=== PATIENT | male | born 1975 | race Caucasian/White ===

== ENCOUNTER 2019-04-30 10:05 | Inpatient (IN) ==
[2019-04-30 10:40] LABS: BASO# 0.03 X1000 (0.0-0.2); BASO% 0.1 % (0.0-0.8); EOS# 0.04 X1000 (0.0-0.7); EOS% 0.2 % (0.0-10.0); HEMATOCRIT 47.8 % (42.0-52.0); HEMOGLOBIN 16.1 g/dL (14.0-18.0); IMM GRAN# 0.06 X1000 (0.0-0.04); IMM GRAN% 0.3 % (0.0-0.5); LYMPH% 8.2 % (20.5-51.1); MCHC 33.7 g/dL (33-37); MCV 91.9 FL (81-99); MONO# 1.21 X1000 (0.11-0.59); MONO% 5.5 % (1.7-9.3); MPV 9.7 FL (7.4-10.4); NEUT# 18.83 X1000 (1.4-6.5); NEUT% 85.7 % (42.2-75.2); PLT 226 X1000 (130-400); RDW 12.4 % (11.5-14.5); WBC 21.97 X1000 (4.8-10.8)
[2019-04-30 10:44] LABS: INR 1.02; PROTIME 13.9 Seconds (11.0-16.0)
[2019-04-30 10:44] LABS: BLOOD TYPE ARTERIAL; SAMPLE BLOOD
[2019-04-30 10:45] LABS: PTT 27.6 Seconds (22.3-41.8)
[2019-04-30 10:46] LABS: pH(98.6) 7.42 (7.35-7.45)
[2019-04-30 10:47] LABS: AGAP 14; ALBUMIN 5.2 g/dL (3.5-5.0); ALKALINE PHOSPHATASE 73 U/L (32-122); BUN 12 mg/dL (8-22); CALCIUM 9.9 mg/dL (8.8-10.2); CHLORIDE 101 mmol/L (98-107); CK PROFILE 76 U/L (24-204); COSMO 283; CREATININE 1.2 mg/dL (0.7-1.2); ESTIMATED GFR > 60; GLUCOSE 141 mg/dL (70-104); GOT 20 U/L (10-34); GPT 19 U/L (10-44); POTASSIUM 4.2 mmol/L (3.5-5.1); SODIUM 141 mmol/L (136-145); TCO2 26 mmol/L (25-35); TOTAL PROTEIN 7.6 g/dL (6.3-8.3)
[2019-04-30 10:47] LABS: BE -0.6 mmoll (-3.0-3.0); HCO3-(ACT) 24.2 mmoll (20.0-26.0); METHB 1.4 % (0.0-1.5); O2HB 88.8 % (95.0-99.0); PCO2(98.6) 36 mmHg (35-45); PO2(98.6) 55 mmHg (60-100); SAO2 93.1 % (95.0-100.0); THB 16.1 g/dL (11.5-17.4)
[2019-04-30 10:48] LABS: ALLEN TEST YES; MODALITY ROOM AIR
[2019-04-30 11:29] LABS: BILIRUBIN URINE NEGATIVE (NEGATIVE); BLOOD URINE NEGATIVE (NEGATIVE); CLARITY SL. CLOUDY (CLEAR); COLOR YELLOW; GLUCOSE URINE NEGATIVE (NEGATIVE); KETONE URINE 1+(Small) mg/dL (NEGATIVE); LEUKOCYTES URINE TRACE (NEGATIVE); NITRITE URINE POSITIVE (NEGATIVE); PH URINE 6.5; PROTEIN URINE 1+(30 mg/dL) mg/dL (NEGATIVE); URINE BACTERIA 2+ /HFP; URINE CAST NONE SEEN /LPF; URINE CRYSTAL NONE SEEN /HPF; URINE EPITHELIAL CELLS <10 /HPF (<10); URINE RBC <10 /HPF (<10); URINE SOURCE CLEAN CATCH; URINE WBC <10 /HPF (<10); URINE YEAST NONE SEEN /HPF; UROBILINOGEN URINE 1 mg/dL
[2019-05-01 05:59] LABS: BASO# 0.01 X1000 (0.0-0.2); HEMATOCRIT 41.9 % (42.0-52.0); HEMOGLOBIN 13.9 g/dL (14.0-18.0); IMM GRAN# 0.08 X1000 (0.0-0.04); IMM GRAN% 0.3 % (0.0-0.5); LYMPH# 0.74 X1000 (1.2-3.4); LYMPH% 2.9 % (20.5-51.1); MCH 30.7 PG (27-31); MCHC 33.2 g/dL (33-37); MCV 92.5 FL (81-99); MONO# 0.69 X1000 (0.11-0.59); MONO% 2.7 % (1.7-9.3); MPV 10.1 FL (7.4-10.4); NEUT# 23.71 X1000 (1.4-6.5); NEUT% 94.1 % (42.2-75.2); PLT 194 X1000 (130-400); RBC 4.53 XMIL (4.7-6.1); RDW 12.4 % (11.5-14.5); WBC 25.23 X1000 (4.8-10.8)
[2019-05-01 06:41] LABS: AGAP 13; BUN 17 mg/dL (8-22); CALCIUM 9.2 mg/dL (8.8-10.2); CHLORIDE 103 mmol/L (98-107); COSMO 281; CREATININE 1.1 mg/dL (0.7-1.2); ESTIMATED GFR > 60; GLUCOSE 192 mg/dL (70-104); POTASSIUM 3.9 mmol/L (3.5-5.1); SODIUM 137 mmol/L (136-145); TCO2 22 mmol/L (25-35)
[2019-05-01 06:45] LABS: BANDS 5 % (0-1); LYMPHS 4 % (21-51); MONO 1 % (1-9); SEGS 90 % (42-75)
[2019-05-01 06:46] LABS: MICROCYTOSIS OCCASIONAL
[2019-05-01 08:46] LABS: BE -1.3 mmoll (-3.0-3.0); BLOOD TYPE ARTERIAL; HCO3-(ACT) 23.8 mmoll (20.0-26.0); METHB 1.1 % (0.0-1.5); O2(CT) 20.5 mL/dL (15.0-23.0); O2HB 95.5 % (95.0-99.0); PCO2(98.6) 24 mmHg (35-45); PO2(98.6) 93 mmHg (60-100); SAMPLE BLOOD; SAO2 99.3 % (95.0-100.0); THB 15.2 g/dL (11.5-17.4); pH(98.6) 7.52 (7.35-7.45)
[2019-05-01 08:48] LABS: ALLEN TEST YES; MODALITY CANNULA
[2019-05-02 05:57] LABS: BE -2.1 mmoll (-3.0-3.0); BLOOD TYPE ARTERIAL; METHB 1.4 % (0.0-1.5); O2(CT) 21.5 mL/dL (15.0-23.0); O2HB 90.4 % (95.0-99.0); PCO2(98.6) 33 mmHg (35-45); PO2(98.6) 60 mmHg (60-100); SAMPLE BLOOD; pH(98.6) 7.42 (7.35-7.45)
[2019-05-02 06:04] LABS: ALLEN TEST YES; MODALITY CANNULA
[2019-05-02 06:41] LABS: AGAP 10; ALBUMIN 3.8 g/dL (3.5-5.0); ALKALINE PHOSPHATASE 56 U/L (32-122); BUN 18 mg/dL (8-22); CALCIUM 9.3 mg/dL (8.8-10.2); CHLORIDE 110 mmol/L (98-107); COSMO 290; CREATININE 1.1 mg/dL (0.7-1.2); ESTIMATED GFR > 60; GLUCOSE 195 mg/dL (70-104); GOT 18 U/L (10-34); GPT 12 U/L (10-44); SODIUM 142 mmol/L (136-145); TCO2 22 mmol/L (25-35); TOTAL PROTEIN 6.6 g/dL (6.3-8.3)
[2019-05-02 06:49] LABS: EOS# 0.05 X1000 (0.0-0.7); EOS% 0.2 % (0.0-10.0); HEMATOCRIT 40.1 % (42.0-52.0); HEMOGLOBIN 13.2 g/dL (14.0-18.0); IMM GRAN# 0.07 X1000 (0.0-0.04); IMM GRAN% 0.3 % (0.0-0.5); LYMPH# 0.72 X1000 (1.2-3.4); LYMPH% 3.3 % (20.5-51.1); MCH 30.8 PG (27-31); MCHC 32.9 g/dL (33-37); MCV 93.5 FL (81-99); MONO# 0.82 X1000 (0.11-0.59); MONO% 3.8 % (1.7-9.3); MPV 10.2 FL (7.4-10.4); NEUT% 92.4 % (42.2-75.2); PLT 210 X1000 (130-400); RBC 4.29 XMIL (4.7-6.1); RDW 12.5 % (11.5-14.5); WBC 21.56 X1000 (4.8-10.8)
[2019-05-02 08:10] LABS: ANISOCYTOSIS 2+; EOS 1 % (1-10); LYMPHS 13 % (21-51); MICROCYTOSIS OCCASIONAL; MONO 2 % (1-9); SEGS 84 % (42-75)
[2019-05-02 16:13] LABS: C REACTIVE PROT QUANT 32.24 mg/L (0.00-5.00)
[2019-05-03 07:20] LABS: HEMATOCRIT 38.4 % (42.0-52.0); HEMOGLOBIN 12.7 g/dL (14.0-18.0); IMM GRAN# 0.06 X1000 (0.0-0.04); IMM GRAN% 0.3 % (0.0-0.5); LYMPH# 1.16 X1000 (1.2-3.4); LYMPH% 6.7 % (20.5-51.1); MCH 31.1 PG (27-31); MCHC 33.1 g/dL (33-37); MCV 93.9 FL (81-99); MONO# 0.86 X1000 (0.11-0.59); MONO% 4.9 % (1.7-9.3); MPV 10.2 FL (7.4-10.4); NEUT# 15.31 X1000 (1.4-6.5); NEUT% 88.1 % (42.2-75.2); PLT 239 X1000 (130-400); RBC 4.09 XMIL (4.7-6.1); RDW 12.5 % (11.5-14.5); WBC 17.39 X1000 (4.8-10.8)
[2019-05-03 07:27] LABS: AGAP 10; BUN 18 mg/dL (8-22); CALCIUM 8.6 mg/dL (8.8-10.2); CHLORIDE 109 mmol/L (98-107); COSMO 291; ESTIMATED GFR > 60; GLUCOSE 166 mg/dL (70-104); POTASSIUM 3.9 mmol/L (3.5-5.1); SODIUM 143 mmol/L (136-145); TCO2 24 mmol/L (25-35)
[2019-05-03 07:49] LABS: BANDS 2 % (0-1); LYMPHS 10 % (21-51); MONO 2 % (1-9); SEGS 86 % (42-75)
[2019-05-03 11:42] LABS: ANTINEUTROPHIL CYTOPLASMIC AB SEE COMMENTS
[2019-05-03 20:42] LABS: HIV ANTIBODY SCREEN SEE COMMENTS
[2019-05-04 05:12] LABS: BASO# 0.01 X1000 (0.0-0.2); BASO% 0.1 % (0.0-0.8); IMM GRAN# 0.08 X1000 (0.0-0.04)
[2019-05-04 05:55] LABS: AGAP 16; BUN 20 mg/dL (8-22); CALCIUM 8.9 mg/dL (8.8-10.2); CHLORIDE 113 mmol/L (98-107); COSMO 309; ESTIMATED GFR > 60; GLUCOSE 212 mg/dL (70-104); POTASSIUM 3.7 mmol/L (3.5-5.1); SODIUM 151 mmol/L (136-145); TCO2 22 mmol/L (25-35)
[2019-05-04 06:06] LABS: LYMPHS 3 % (21-51); MONO 3 % (1-9); SEGS 94 % (42-75)
[2019-05-04 07:35] LABS: HEMATOCRIT 38.7 % (42.0-52.0); IMM GRAN% 0.5 % (0.0-0.5); LYMPH# 1.05 X1000 (1.2-3.4); LYMPH% 6.5 % (20.5-51.1); MCH 31.1 PG (27-31); MCHC 33.6 g/dL (33-37); MCV 92.6 FL (81-99); MONO# 0.95 X1000 (0.11-0.59); MONO% 5.8 % (1.7-9.3); MPV 10.2 FL (7.4-10.4); NEUT# 14.15 X1000 (1.4-6.5); NEUT% 87.1 % (42.2-75.2); PLT 236 X1000 (130-400); RBC 4.18 XMIL (4.7-6.1); WBC 16.24 X1000 (4.8-10.8)
[2019-05-04 12:00] LABS: HEPATITIS PROFILE ACUTE SEE COMMENTS
[2019-05-04 13:49] LABS: COCCIDIOIDES AB SCREEN SERUM SEE COMMENTS
[2019-05-05 04:44] LABS: ALLEN TEST YES; BE 2.2 mmoll (-3.0-3.0); BLOOD TYPE ARTERIAL; HCO3-(ACT) 26.4 mmoll (20.0-26.0); METHB 0.8 % (0.0-1.5); O2(CT) 21.2 mL/dL (15.0-23.0); PCO2(98.6) 35 mmHg (35-45); PO2(98.6) 58 mmHg (60-100); SAMPLE BLOOD; SAO2 92.5 % (95.0-100.0); THB 16.8 g/dL (11.5-17.4); pH(98.6) 7.47 (7.35-7.45)
[2019-05-05 04:45] LABS: MODALITY VENTIMASK
[2019-05-05 06:19] LABS: BASO# 0.01 X1000 (0.0-0.2); BASO% 0.1 % (0.0-0.8); HEMATOCRIT 38.1 % (42.0-52.0); HEMOGLOBIN 12.8 g/dL (14.0-18.0); IMM GRAN% 0.6 % (0.0-0.5); LYMPH# 0.87 X1000 (1.2-3.4); LYMPH% 5.2 % (20.5-51.1); MCH 30.9 PG (27-31); MCHC 33.6 g/dL (33-37); MONO# 1.12 X1000 (0.11-0.59); MONO% 6.7 % (1.7-9.3); NEUT# 14.73 X1000 (1.4-6.5); NEUT% 87.4 % (42.2-75.2); PLT 233 X1000 (130-400); RBC 4.14 XMIL (4.7-6.1); RDW 11.8 % (11.5-14.5); WBC 16.83 X1000 (4.8-10.8)
[2019-05-05 06:28] LABS: AGAP 12; ALB/GLOB RATIO 1.1; ALBUMIN 2.8 g/dL (3.5-5.0); ALKALINE PHOSPHATASE 54 U/L (32-122); BUN 22 mg/dL (8-22); CALCIUM 8.4 mg/dL (8.8-10.2); CHLORIDE 106 mmol/L (98-107); COSMO 290; CREATININE 0.9 mg/dL (0.7-1.2); ESTIMATED GFR > 60; GLUCOSE 197 mg/dL (70-104); GOT 10 U/L (10-34); GPT 17 U/L (10-44); POTASSIUM 3.7 mmol/L (3.5-5.1); SODIUM 141 mmol/L (136-145); TCO2 23 mmol/L (25-35); TOTAL PROTEIN 5.4 g/dL (6.3-8.3)
[2019-05-05 06:55] LABS: LYMPHS 9 % (21-51); MONO 2 % (1-9); SEGS 89 % (42-75)
[2019-05-06 09:13] LABS: BASO# 0.01 X1000 (0.0-0.2); BASO% 0.1 % (0.0-0.8); HEMATOCRIT 41.5 % (42.0-52.0); HEMOGLOBIN 14.3 g/dL (14.0-18.0); IMM GRAN# 0.19 X1000 (0.0-0.04); LYMPH# 0.85 X1000 (1.2-3.4); LYMPH% 4.6 % (20.5-51.1); MCH 31.5 PG (27-31); MCHC 34.5 g/dL (33-37); MCV 91.4 FL (81-99); MONO# 0.98 X1000 (0.11-0.59); MONO% 5.4 % (1.7-9.3); MPV 9.8 FL (7.4-10.4); NEUT# 16.27 X1000 (1.4-6.5); NEUT% 88.9 % (42.2-75.2); PLT 256 X1000 (130-400); RBC 4.54 XMIL (4.7-6.1); RDW 11.8 % (11.5-14.5)
[2019-05-06 09:24] LABS: AGAP 12; BUN 21 mg/dL (8-22); CALCIUM 8.5 mg/dL (8.8-10.2); CHLORIDE 105 mmol/L (98-107); COSMO 291; CREATININE 0.9 mg/dL (0.7-1.2); ESTIMATED GFR > 60; GLUCOSE 180 mg/dL (70-104); POTASSIUM 3.8 mmol/L (3.5-5.1); SODIUM 142 mmol/L (136-145); TCO2 25 mmol/L (25-35)
[2019-05-06 11:03] LABS: ANISOCYTOSIS 1+; LYMPHS 6 % (21-51); MONO 5 % (1-9); POIKILOCYTOSIS 1+; POLYCHROM 1+; SEGS 89 % (42-75)
[2019-05-06 11:04] LABS: LARGE PLATELETS OCCASIONAL
[2019-05-06 23:34] LABS: ALLEN TEST YES; BE 1.7 mmoll (-3.0-3.0); BLOOD TYPE ARTERIAL; HCO3-(ACT) 26.2 mmoll (20.0-26.0); METHB 0.9 % (0.0-1.5); O2(CT) 19.3 mL/dL (15.0-23.0); O2HB 97.1 % (95.0-99.0); PCO2(98.6) 26 mmHg (35-45); PO2(98.6) 122 mmHg (60-100); SAMPLE BLOOD; SAO2 99.4 % (95.0-100.0); pH(98.6) 7.55 (7.35-7.45)
[2019-05-06 23:35] LABS: MODALITY NRB
[2019-05-07 06:33] LABS: BASO# 0.02 X1000 (0.0-0.2); BASO% 0.1 % (0.0-0.8); HEMATOCRIT 38.6 % (42.0-52.0); HEMOGLOBIN 13.2 g/dL (14.0-18.0); IMM GRAN# 0.18 X1000 (0.0-0.04); IMM GRAN% 0.9 % (0.0-0.5); LYMPH# 0.88 X1000 (1.2-3.4); LYMPH% 4.2 % (20.5-51.1); MCH 31.1 PG (27-31); MCHC 34.2 g/dL (33-37); MONO# 1.23 X1000 (0.11-0.59); MONO% 5.9 % (1.7-9.3); MPV 9.8 FL (7.4-10.4); NEUT% 88.9 % (42.2-75.2); PLT 243 X1000 (130-400); RBC 4.24 XMIL (4.7-6.1); RDW 11.7 % (11.5-14.5); WBC 20.91 X1000 (4.8-10.8)
[2019-05-07 06:48] LABS: AGAP 11; BUN 24 mg/dL (8-22); CALCIUM 8.1 mg/dL (8.8-10.2); CHLORIDE 106 mmol/L (98-107); COSMO 291; CREATININE 0.9 mg/dL (0.7-1.2); ESTIMATED GFR > 60; GLUCOSE 196 mg/dL (70-104); POTASSIUM 4.1 mmol/L (3.5-5.1); SODIUM 141 mmol/L (136-145); TCO2 24 mmol/L (25-35)
[2019-05-07 06:55] LABS: HEMOGLOBIN A1C 5.9 % (4.8-6.0)
[2019-05-07 07:17] LABS: MONO 2 % (1-9); SEGS 98 % (42-75)
[2019-05-08 04:21] LABS: ALLEN TEST YES; BE 3.9 mmoll (-3.0-3.0); BLOOD TYPE ARTERIAL; METHB 0.9 % (0.0-1.5); O2(CT) 18.2 mL/dL (15.0-23.0); O2HB 97.3 % (95.0-99.0); PCO2(98.6) 38 mmHg (35-45); PO2(98.6) 124 mmHg (60-100); SAMPLE BLOOD; SAO2 100.2 % (95.0-100.0); THB 13.2 g/dL (11.5-17.4); pH(98.6) 7.47 (7.35-7.45)
[2019-05-08 04:22] LABS: MODALITY NRB
[2019-05-08 06:42] LABS: BASO# 0.02 X1000 (0.0-0.2); BASO% 0.1 % (0.0-0.8); HEMATOCRIT 38.5 % (42.0-52.0); HEMOGLOBIN 13.2 g/dL (14.0-18.0); IMM GRAN# 0.22 X1000 (0.0-0.04); IMM GRAN% 0.9 % (0.0-0.5); LYMPH% 4.3 % (20.5-51.1); MCH 31.1 PG (27-31); MCHC 34.3 g/dL (33-37); MCV 90.6 FL (81-99); MONO# 1.15 X1000 (0.11-0.59); MONO% 4.5 % (1.7-9.3); MPV 9.7 FL (7.4-10.4); NEUT# 23.25 X1000 (1.4-6.5); NEUT% 90.2 % (42.2-75.2); PLT 223 X1000 (130-400); RBC 4.25 XMIL (4.7-6.1); RDW 11.9 % (11.5-14.5); WBC 25.74 X1000 (4.8-10.8)
[2019-05-08 06:57] LABS: AGAP 11; ALB/GLOB RATIO 1.2; ALBUMIN 2.7 g/dL (3.5-5.0); ALKALINE PHOSPHATASE 62 U/L (32-122); BUN 23 mg/dL (8-22); CALCIUM 8.2 mg/dL (8.8-10.2); CHLORIDE 106 mmol/L (98-107); COSMO 294; CREATININE 0.8 mg/dL (0.7-1.2); ESTIMATED GFR > 60; GLUCOSE 191 mg/dL (70-104); GOT 11 U/L (10-34); GPT 19 U/L (10-44); SODIUM 143 mmol/L (136-145); TCO2 26 mmol/L (25-35); TOTAL BILIRUBIN 0.59 mg/dL (0.20-1.00); TOTAL PROTEIN 4.9 g/dL (6.3-8.3)
[2019-05-09 04:36] LABS: ALLEN TEST YES; BE 2.5 mmoll (-3.0-3.0); BLOOD TYPE ARTERIAL; HCO3-(ACT) 26.8 mmoll (20.0-26.0); O2(CT) 17.5 mL/dL (15.0-23.0); O2HB 94.6 % (95.0-99.0); PCO2(98.6) 37 mmHg (35-45); PO2(98.6) 74 mmHg (60-100); SAMPLE BLOOD; THB 13.1 g/dL (11.5-17.4); pH(98.6) 7.46 (7.35-7.45)
[2019-05-09 04:39] LABS: MODALITY NRB
[2019-05-09 06:24] LABS: BASO# 0.03 X1000 (0.0-0.2); BASO% 0.1 % (0.0-0.8); EOS# 0.02 X1000 (0.0-0.7); EOS% 0.1 % (0.0-10.0); HEMATOCRIT 38.9 % (42.0-52.0); HEMOGLOBIN 13.3 g/dL (14.0-18.0); IMM GRAN# 0.22 X1000 (0.0-0.04); IMM GRAN% 0.8 % (0.0-0.5); LYMPH# 1.01 X1000 (1.2-3.4); LYMPH% 3.6 % (20.5-51.1); MCH 31.1 PG (27-31); MCHC 34.2 g/dL (33-37); MCV 91.1 FL (81-99); MONO# 1.07 X1000 (0.11-0.59); MONO% 3.8 % (1.7-9.3); MPV 9.8 FL (7.4-10.4); NEUT# 26.06 X1000 (1.4-6.5); NEUT% 91.6 % (42.2-75.2); PLT 195 X1000 (130-400); RBC 4.27 XMIL (4.7-6.1); RDW 12.1 % (11.5-14.5); WBC 28.41 X1000 (4.8-10.8)
[2019-05-09 06:39] LABS: AGAP 11; BUN 23 mg/dL (8-22); CHLORIDE 107 mmol/L (98-107); COSMO 294; CREATININE 0.9 mg/dL (0.7-1.2); ESTIMATED GFR > 60; GLUCOSE 203 mg/dL (70-104); POTASSIUM 4.2 mmol/L (3.5-5.1); SODIUM 143 mmol/L (136-145); TCO2 25 mmol/L (25-35)
[2019-05-09 07:26] LABS: LYMPHS 3 % (21-51); MONO 4 % (1-9); SEGS 93 % (42-75)
[2019-05-10 04:24] LABS: ALLEN TEST YES; BE 4.2 mmoll (-3.0-3.0); BLOOD TYPE ARTERIAL; HCO3-(ACT) 28.1 mmoll (20.0-26.0); METHB 1.4 % (0.0-1.5); O2(CT) 17.1 mL/dL (15.0-23.0); O2HB 93.9 % (95.0-99.0); PCO2(98.6) 40 mmHg (35-45); PO2(98.6) 78 mmHg (60-100); SAMPLE BLOOD; SAO2 96.5 % (95.0-100.0); THB 12.9 g/dL (11.5-17.4); pH(98.6) 7.46 (7.35-7.45)
[2019-05-10 04:25] LABS: MODALITY NRB
[2019-05-10 05:46] LABS: BASO# 0.01 X1000 (0.0-0.2); EOS# 0.01 X1000 (0.0-0.7); HEMATOCRIT 37.6 % (42.0-52.0); HEMOGLOBIN 12.8 g/dL (14.0-18.0); IMM GRAN# 0.13 X1000 (0.0-0.04); IMM GRAN% 0.6 % (0.0-0.5); LYMPH# 0.98 X1000 (1.2-3.4); LYMPH% 4.5 % (20.5-51.1); MCH 31.3 PG (27-31); MCV 91.9 FL (81-99); MONO# 0.95 X1000 (0.11-0.59); MONO% 4.4 % (1.7-9.3); MPV 10.1 FL (7.4-10.4); NEUT% 90.5 % (42.2-75.2); PLT 192 X1000 (130-400); RBC 4.09 XMIL (4.7-6.1); RDW 12.1 % (11.5-14.5); WBC 21.68 X1000 (4.8-10.8)
[2019-05-10 06:03] LABS: AGAP 11; ALB/GLOB RATIO 1.2; ALBUMIN 2.6 g/dL (3.5-5.0); ALKALINE PHOSPHATASE 71 U/L (32-122); BUN 24 mg/dL (8-22); CALCIUM 8.2 mg/dL (8.8-10.2); CHLORIDE 102 mmol/L (98-107); COSMO 289; CREATININE 0.8 mg/dL (0.7-1.2); ESTIMATED GFR > 60; GLUCOSE 225 mg/dL (70-104); GOT 10 U/L (10-34); GPT 18 U/L (10-44); POTASSIUM 4.5 mmol/L (3.5-5.1); SODIUM 139 mmol/L (136-145); TCO2 26 mmol/L (25-35); TOTAL BILIRUBIN 0.36 mg/dL (0.20-1.00); TOTAL PROTEIN 4.8 g/dL (6.3-8.3)
[2019-05-10 06:07] LABS: LYMPHS 2 % (21-51); SEGS 96 % (42-75)
[2019-05-10 10:25] LABS: ALLEN TEST YES; BE 1.7 mmoll (-3.0-3.0); BLOOD TYPE ARTERIAL; METHB 1.1 % (0.0-1.5); O2(CT) 16.6 mL/dL (15.0-23.0); PCO2(98.6) 38 mmHg (35-45); PO2(98.6) 56 mmHg (60-100); SAMPLE BLOOD; SAO2 91.4 % (95.0-100.0); THB 13.3 g/dL (11.5-17.4); pH(98.6) 7.44 (7.35-7.45)
[2019-05-10 10:26] LABS: MODALITY NRB; O2HB 88.8 % (95.0-99.0)
[2019-05-10 16:51] LABS: URINE SOURCE CATH
[2019-05-10 16:55] LABS: BILIRUBIN URINE NEGATIVE (NEGATIVE); BLOOD URINE NEGATIVE (NEGATIVE); COLOR YELLOW; GLUCOSE URINE 70 mg/dL (NEGATIVE); KETONE URINE NEGATIVE (NEGATIVE); LEUKOCYTES URINE NEGATIVE (NEGATIVE); NITRITE URINE NEGATIVE (NEGATIVE); PH URINE 6.5; PROTEIN URINE NEGATIVE (NEGATIVE); SP GRAVITY URINE 1.018; TURBIDITY URINE HAZY (CLEAR); UROBILINOGEN URINE NORMAL (NORMAL)
[2019-05-10 16:57] LABS: UR EPITHELIAL CELLS <10 /HPF (<10); URINE BACTERIA NEGATIVE /HPF; URINE RBC <10 /HPF (<10); URINE WBC <10 /HPF (<10)
[2019-05-10 17:06] LABS: URINE CRYSTALS NONE SEEN
[2019-05-11 04:21] LABS: ALLEN TEST YES; BE 8.2 mmoll (-3.0-3.0); BLOOD TYPE ARTERIAL; HCO3-(ACT) 31.3 mmoll (20.0-26.0); METHB 0.8 % (0.0-1.5); O2(CT) 20.7 mL/dL (15.0-23.0); O2HB 96.4 % (95.0-99.0); PCO2(98.6) 44 mmHg (35-45); PO2(98.6) 102 mmHg (60-100); SAMPLE BLOOD; SAO2 99.1 % (95.0-100.0); SRATE 8 BPM; THB 15.2 g/dL (11.5-17.4); pH(98.6) 7.48 (7.35-7.45)
[2019-05-11 04:23] LABS: MODALITY BI PAP
[2019-05-11 06:07] LABS: BASO# 0.01 X1000 (0.0-0.2); BASO% 0.1 % (0.0-0.8); EOS# 0.01 X1000 (0.0-0.7); EOS% 0.1 % (0.0-10.0); HEMATOCRIT 42.9 % (42.0-52.0); HEMOGLOBIN 14.7 g/dL (14.0-18.0); IMM GRAN# 0.08 X1000 (0.0-0.04); IMM GRAN% 0.4 % (0.0-0.5); LYMPH# 0.95 X1000 (1.2-3.4); MCH 31.2 PG (27-31); MCHC 34.3 g/dL (33-37); MCV 91.1 FL (81-99); MONO# 0.54 X1000 (0.11-0.59); MONO% 2.8 % (1.7-9.3); MPV 10.2 FL (7.4-10.4); NEUT# 17.49 X1000 (1.4-6.5); NEUT% 91.6 % (42.2-75.2); PLT 236 X1000 (130-400); RBC 4.71 XMIL (4.7-6.1); RDW 12.3 % (11.5-14.5); WBC 19.08 X1000 (4.8-10.8)
[2019-05-11 06:18] LABS: AGAP 16; BUN 32 mg/dL (8-22); CALCIUM 8.2 mg/dL (8.8-10.2); CHLORIDE 96 mmol/L (98-107); COSMO 290; CREATININE 0.9 mg/dL (0.7-1.2); ESTIMATED GFR > 60; GLUCOSE 194 mg/dL (70-104); MAGNESIUM 2.6 mg/dL (1.5-2.7); POTASSIUM 4.3 mmol/L (3.5-5.1); SODIUM 139 mmol/L (136-145); TCO2 27 mmol/L (25-35)
[2019-05-12 04:34] LABS: ALLEN TEST YES; BE 7.3 mmoll (-3.0-3.0); BLOOD TYPE ARTERIAL; HCO3-(ACT) 30.2 mmoll (20.0-26.0); METHB 0.6 % (0.0-1.5); O2(CT) 18.1 mL/dL (15.0-23.0); PCO2(98.6) 44 mmHg (35-45); PO2(98.6) 50 mmHg (60-100); SAMPLE BLOOD; SAO2 87.4 % (95.0-100.0); THB 15.2 g/dL (11.5-17.4); pH(98.6) 7.47 (7.35-7.45)
[2019-05-12 04:35] LABS: MODALITY VENTIMASK; O2HB 85.1 % (95.0-99.0)
[2019-05-13 04:34] LABS: ALLEN TEST YES; BE 6.9 mmoll (-3.0-3.0); BLOOD TYPE ARTERIAL; HCO3-(ACT) 30.1 mmoll (20.0-26.0); METHB 0.9 % (0.0-1.5); MODALITY NRB; O2(CT) 20.6 mL/dL (15.0-23.0); O2HB 92.3 % (95.0-99.0); PCO2(98.6) 42 mmHg (35-45); PO2(98.6) 65 mmHg (60-100); SAMPLE BLOOD; SAO2 94.6 % (95.0-100.0); THB 15.9 g/dL (11.5-17.4); pH(98.6) 7.48 (7.35-7.45)
[2019-05-13 06:18] LABS: BASO# 0.02 X1000 (0.0-0.2); BASO% 0.1 % (0.0-0.8); HEMOGLOBIN 15.5 g/dL (14.0-18.0); IMM GRAN# 0.05 X1000 (0.0-0.04); IMM GRAN% 0.3 % (0.0-0.5); LYMPH# 0.91 X1000 (1.2-3.4); LYMPH% 4.8 % (20.5-51.1); MCH 31.4 PG (27-31); MCHC 34.4 g/dL (33-37); MCV 91.1 FL (81-99); MONO% 4.8 % (1.7-9.3); MPV 10.3 FL (7.4-10.4); NEUT# 16.91 X1000 (1.4-6.5); PLT 305 X1000 (130-400); RBC 4.94 XMIL (4.7-6.1); RDW 12.2 % (11.5-14.5); WBC 18.79 X1000 (4.8-10.8)
[2019-05-13 06:28] LABS: AGAP 19; BUN 37 mg/dL (8-22); CALCIUM 8.6 mg/dL (8.8-10.2); CHLORIDE 92 mmol/L (98-107); COSMO 293; ESTIMATED GFR > 60; GLUCOSE 326 mg/dL (70-104); MAGNESIUM 2.5 mg/dL (1.5-2.7); POTASSIUM 4.2 mmol/L (3.5-5.1); SODIUM 136 mmol/L (136-145); TCO2 25 mmol/L (25-35)
[2019-05-13 07:29] LABS: BANDS 1 % (0-1); LYMPHS 7 % (21-51); MONO 6 % (1-9); SEGS 86 % (42-75)
[2019-05-14 04:34] LABS: ALLEN TEST YES; BE 6.3 mmoll (-3.0-3.0); BLOOD TYPE ARTERIAL; HCO3-(ACT) 29.8 mmoll (20.0-26.0); METHB 1.2 % (0.0-1.5); O2(CT) 20.5 mL/dL (15.0-23.0); O2HB 95.7 % (95.0-99.0); PCO2(98.6) 48 mmHg (35-45); PO2(98.6) 97 mmHg (60-100); SAMPLE BLOOD; SAO2 98.6 % (95.0-100.0); THB 15.2 g/dL (11.5-17.4); pH(98.6) 7.43 (7.35-7.45)
[2019-05-14 04:35] LABS: MODALITY NRB
[2019-05-14 08:48] LABS: BASO# 0.01 X1000 (0.0-0.2); BASO% 0.1 % (0.0-0.8); EOS# 0.01 X1000 (0.0-0.7); EOS% 0.1 % (0.0-10.0); HEMATOCRIT 44.8 % (42.0-52.0); HEMOGLOBIN 15.1 g/dL (14.0-18.0); IMM GRAN# 0.04 X1000 (0.0-0.04); IMM GRAN% 0.2 % (0.0-0.5); LYMPH# 0.66 X1000 (1.2-3.4); LYMPH% 3.5 % (20.5-51.1); MCHC 33.7 g/dL (33-37); MONO# 0.74 X1000 (0.11-0.59); NEUT# 17.21 X1000 (1.4-6.5); NEUT% 92.1 % (42.2-75.2); PLT 337 X1000 (130-400); RBC 4.87 XMIL (4.7-6.1); RDW 12.3 % (11.5-14.5); WBC 18.67 X1000 (4.8-10.8)
[2019-05-14 08:52] LABS: AGAP 10; BUN 35 mg/dL (8-22); CALCIUM 9.1 mg/dL (8.8-10.2); CHLORIDE 95 mmol/L (98-107); COSMO 282; ESTIMATED GFR > 60; GLUCOSE 168 mg/dL (70-104); MAGNESIUM 2.5 mg/dL (1.5-2.7); POTASSIUM 4.7 mmol/L (3.5-5.1); SODIUM 135 mmol/L (136-145); TCO2 30 mmol/L (25-35)
[2019-05-14 08:57] LABS: LYMPHS 6 % (21-51); SEGS 94 % (42-75)
[2019-05-15 04:37] LABS: ALLEN TEST YES; BE 3.1 mmoll (-3.0-3.0); BLOOD TYPE ARTERIAL; HCO3-(ACT) 27.1 mmoll (20.0-26.0); O2(CT) 19.4 mL/dL (15.0-23.0); PCO2(98.6) 42 mmHg (35-45); PO2(98.6) 62 mmHg (60-100); SAMPLE BLOOD; SAO2 93.5 % (95.0-100.0); THB 15.2 g/dL (11.5-17.4); pH(98.6) 7.43 (7.35-7.45)
[2019-05-15 04:38] LABS: MODALITY NRB
[2019-05-15 04:59] LABS: BASO# 0.01 X1000 (0.0-0.2); HEMOGLOBIN 14.2 g/dL (14.0-18.0); IMM GRAN# 0.09 X1000 (0.0-0.04); IMM GRAN% 0.4 % (0.0-0.5); LYMPH# 0.87 X1000 (1.2-3.4); LYMPH% 3.8 % (20.5-51.1); MCH 31.6 PG (27-31); MCHC 34.6 g/dL (33-37); MCV 91.1 FL (81-99); MONO# 1.17 X1000 (0.11-0.59); MONO% 5.1 % (1.7-9.3); MPV 10.3 FL (7.4-10.4); NEUT# 20.63 X1000 (1.4-6.5); NEUT% 90.7 % (42.2-75.2); PLT 306 X1000 (130-400); WBC 22.77 X1000 (4.8-10.8)
[2019-05-15 05:14] LABS: AGAP 14; BUN 29 mg/dL (8-22); CALCIUM 8.2 mg/dL (8.8-10.2); CHLORIDE 99 mmol/L (98-107); COSMO 287; CREATININE 0.7 mg/dL (0.7-1.2); ESTIMATED GFR > 60; GLUCOSE 232 mg/dL (70-104); MAGNESIUM 2.3 mg/dL (1.5-2.7); POTASSIUM 4.8 mmol/L (3.5-5.1); SODIUM 137 mmol/L (136-145); TCO2 24 mmol/L (25-35)
[2019-05-15 06:01] LABS: LYMPHS 7 % (21-51); MONO 3 % (1-9); SEGS 90 % (42-75)
[2019-05-15 10:47] LABS: URINE SOURCE CATH
[2019-05-15 10:49] LABS: BILIRUBIN URINE NEGATIVE (NEGATIVE); BLOOD URINE NEGATIVE (NEGATIVE); COLOR STRAW; GLUCOSE URINE 500 mg/dL (NEGATIVE); KETONE URINE NEGATIVE (NEGATIVE); LEUKOCYTES URINE NEGATIVE (NEGATIVE); NITRITE URINE NEGATIVE (NEGATIVE); PROTEIN URINE NEGATIVE (NEGATIVE); SP GRAVITY URINE 1.007; TURBIDITY URINE CLEAR (CLEAR); UROBILINOGEN URINE NORMAL (NORMAL)
[2019-05-15 10:51] LABS: UR EPITHELIAL CELLS <10 /HPF (<10); URINE BACTERIA NEGATIVE /HPF; URINE RBC <10 /HPF (<10); URINE WBC <10 /HPF (<10)
[2019-05-16 04:33] LABS: ALLEN TEST YES; BE 3.5 mmoll (-3.0-3.0); BLOOD TYPE ARTERIAL; HCO3-(ACT) 27.6 mmoll (20.0-26.0); METHB 0.9 % (0.0-1.5); O2HB 95.9 % (95.0-99.0); PO2(98.6) 104 mmHg (60-100); SAMPLE BLOOD; SAO2 98.1 % (95.0-100.0); SRATE 20 BPM; THB 15.5 g/dL (11.5-17.4); TVOL 470 mL; pH(98.6) 7.36 (7.35-7.45)
[2019-05-16 04:34] LABS: MODALITY VENTILATOR; PCO2(98.6) 54 mmHg (35-45)
[2019-05-16 08:17] LABS: BASO# 0.01 X1000 (0.0-0.2); HEMATOCRIT 46.1 % (42.0-52.0); HEMOGLOBIN 15.3 g/dL (14.0-18.0); IMM GRAN# 0.12 X1000 (0.0-0.04); IMM GRAN% 0.3 % (0.0-0.5); LYMPH# 1.45 X1000 (1.2-3.4); LYMPH% 4.1 % (20.5-51.1); MCH 31.1 PG (27-31); MCHC 33.2 g/dL (33-37); MCV 93.7 FL (81-99); MONO# 0.91 X1000 (0.11-0.59); MONO% 2.6 % (1.7-9.3); MPV 10.8 FL (7.4-10.4); NEUT# 32.81 X1000 (1.4-6.5); PLT 399 X1000 (130-400); RBC 4.92 XMIL (4.7-6.1); RDW 12.9 % (11.5-14.5)
[2019-05-16 08:29] LABS: AGAP 16; BUN 32 mg/dL (8-22); CALCIUM 8.3 mg/dL (8.8-10.2); CHLORIDE 98 mmol/L (98-107); COSMO 296; CREATININE 0.6 mg/dL (0.7-1.2); ESTIMATED GFR > 60; GLUCOSE 266 mg/dL (70-104); MAGNESIUM 2.6 mg/dL (1.5-2.7); POTASSIUM 5.5 mmol/L (3.5-5.1); SODIUM 140 mmol/L (136-145); TCO2 26 mmol/L (25-35)
[2019-05-16 09:01] LABS: BANDS 12 % (0-1); LARGE PLATELETS 1+; LYMPHS 4 % (21-51); MONO 2 % (1-9); SEGS 82 % (42-75)
[2019-05-16 10:15] LABS: HEMATOCRIT 38.6 % (42.0-52.0); HEMOGLOBIN 12.8 g/dL (14.0-18.0)
[2019-05-16 14:03] LABS: HEMATOCRIT 41.7 % (42.0-52.0); HEMOGLOBIN 13.9 g/dL (14.0-18.0)
[2019-05-17 04:54] LABS: ALLEN TEST YES; BLOOD TYPE ARTERIAL; HCO3-(ACT) 30.4 mmoll (20.0-26.0); METHB 0.7 % (0.0-1.5); O2(CT) 16.2 mL/dL (15.0-23.0); O2HB 96.9 % (95.0-99.0); PO2(98.6) 98 mmHg (60-100); SAMPLE BLOOD; SAO2 99.7 % (95.0-100.0); SRATE 20 BPM; THB 11.8 g/dL (11.5-17.4); TVOL 470 mL; pH(98.6) 7.38 (7.35-7.45)
[2019-05-17 04:58] LABS: MODALITY VENTILATOR
[2019-05-17 05:00] LABS: PCO2(98.6) 57 mmHg (35-45)
[2019-05-17 05:54] LABS: AGAP 9; ALB/GLOB RATIO 1.1; ALBUMIN 2.8 g/dL (3.5-5.0); ALKALINE PHOSPHATASE 59 U/L (32-122); BUN 42 mg/dL (8-22); CALCIUM 8.8 mg/dL (8.8-10.2); CHLORIDE 97 mmol/L (98-107); COSMO 288; CREATININE 0.7 mg/dL (0.7-1.2); ESTIMATED GFR > 60; GLUCOSE 231 mg/dL (70-104); GOT 8 U/L (10-34); GPT 31 U/L (10-44); POTASSIUM 5.6 mmol/L (3.5-5.1); SODIUM 135 mmol/L (136-145); TCO2 29 mmol/L (25-35); TOTAL BILIRUBIN 0.19 mg/dL (0.20-1.00); TOTAL PROTEIN 5.3 g/dL (6.3-8.3)
[2019-05-17 06:19] LABS: PHOSPHORUS 3.5 mg/dL (2.7-4.5); PREALBUMIN 24.2 mg/dL (20-40)
[2019-05-17 08:50] LABS: BASO# 0.02 X1000 (0.0-0.2); BASO% 0.1 % (0.0-0.8); EOS# 0.11 X1000 (0.0-0.7); EOS% 0.3 % (0.0-10.0); HEMATOCRIT 35.3 % (42.0-52.0); HEMOGLOBIN 11.5 g/dL (14.0-18.0); IMM GRAN# 0.14 X1000 (0.0-0.04); IMM GRAN% 0.4 % (0.0-0.5); LYMPH% 5.7 % (20.5-51.1); MCH 31.3 PG (27-31); MCHC 32.6 g/dL (33-37); MCV 96.2 FL (81-99); MONO% 4.4 % (1.7-9.3); MPV 10.7 FL (7.4-10.4); NEUT# 34.51 X1000 (1.4-6.5); NEUT% 89.1 % (42.2-75.2); PLT 294 X1000 (130-400); RBC 3.67 XMIL (4.7-6.1); RDW 12.7 % (11.5-14.5); WBC 38.68 X1000 (4.8-10.8)
[2019-05-18 04:30] LABS: ALLEN TEST YES; BE 9.9 mmoll (-3.0-3.0); BLOOD TYPE ARTERIAL; HCO3-(ACT) 32.6 mmoll (20.0-26.0); METHB 0.9 % (0.0-1.5); O2(CT) 13.9 mL/dL (15.0-23.0); O2HB 95.2 % (95.0-99.0); PO2(98.6) 78 mmHg (60-100); SAMPLE BLOOD; SAO2 97.7 % (95.0-100.0); SRATE 20 BPM; THB 10.3 g/dL (11.5-17.4); TVOL 470 mL; pH(98.6) 7.41 (7.35-7.45)
[2019-05-18 04:32] LABS: MODALITY VENTILATOR; PCO2(98.6) 57 mmHg (35-45)
[2019-05-18 06:50] LABS: AGAP 8; ALB/GLOB RATIO 1.2; ALBUMIN 2.6 g/dL (3.5-5.0); ALKALINE PHOSPHATASE 55 U/L (32-122); BUN 32 mg/dL (8-22); CALCIUM 7.7 mg/dL (8.8-10.2); CHLORIDE 98 mmol/L (98-107); COSMO 281; CREATININE 0.5 mg/dL (0.7-1.2); ESTIMATED GFR > 60; GLUCOSE 175 mg/dL (70-104); GOT 11 U/L (10-34); GPT 23 U/L (10-44); POTASSIUM 5.8 mmol/L (3.5-5.1); SODIUM 135 mmol/L (136-145); TCO2 29 mmol/L (25-35); TOTAL BILIRUBIN 0.17 mg/dL (0.20-1.00); TOTAL PROTEIN 4.7 g/dL (6.3-8.3)
[2019-05-18 07:53] LABS: BASO# 0.01 X1000 (0.0-0.2); HEMATOCRIT 29.8 % (42.0-52.0); HEMOGLOBIN 9.8 g/dL (14.0-18.0); IMM GRAN# 0.11 X1000 (0.0-0.04); IMM GRAN% 0.4 % (0.0-0.5); LYMPH# 1.79 X1000 (1.2-3.4); LYMPH% 6.7 % (20.5-51.1); MCH 30.9 PG (27-31); MCHC 32.9 g/dL (33-37); MONO# 0.88 X1000 (0.11-0.59); MONO% 3.3 % (1.7-9.3); MPV 10.9 FL (7.4-10.4); NEUT% 89.6 % (42.2-75.2); PLT 247 X1000 (130-400); RBC 3.17 XMIL (4.7-6.1); RDW 12.2 % (11.5-14.5); WBC 26.79 X1000 (4.8-10.8)
[2019-05-18 08:47] LABS: LYMPHS 14 % (21-51); MONO 4 % (1-9); SEGS 82 % (42-75)
[2019-05-18 13:01] LABS: COCCIDIOIDES AB SCREEN SERUM SEE COMMENTS
[2019-05-19 04:14] LABS: ALLEN TEST YES; BE 20.9 mmoll (-3.0-3.0); BLOOD TYPE ARTERIAL; HCO3-(ACT) 41.2 mmoll (20.0-26.0); METHB 1.3 % (0.0-1.5); O2(CT) 12.2 mL/dL (15.0-23.0); O2HB 95.9 % (95.0-99.0); PO2(98.6) 78 mmHg (60-100); SAMPLE BLOOD; SAO2 98.5 % (95.0-100.0); SRATE 20 BPM; TVOL 470 mL; pH(98.6) 7.53 (7.35-7.45)
[2019-05-19 04:18] LABS: MODALITY VENTILATOR; PCO2(98.6) 55 mmHg (35-45)
[2019-05-19 05:36] LABS: MAGNESIUM 2.3 mg/dL (1.5-2.7); PHOSPHORUS 2.8 mg/dL (2.7-4.5)
[2019-05-19 05:41] LABS: PREALBUMIN 24.6 mg/dL (20-40)
[2019-05-19 05:44] LABS: AGAP 8; ALB/GLOB RATIO 1.7; ALBUMIN 3.3 g/dL (3.5-5.0); ALKALINE PHOSPHATASE 43 U/L (32-122); BUN 32 mg/dL (8-22); CALCIUM 8.6 mg/dL (8.8-10.2); CHLORIDE 95 mmol/L (98-107); COSMO 289; CREATININE 0.6 mg/dL (0.7-1.2); ESTIMATED GFR > 60; GLUCOSE 117 mg/dL (70-104); GOT 17 U/L (10-34); GPT 25 U/L (10-44); POTASSIUM 4.1 mmol/L (3.5-5.1); SODIUM 141 mmol/L (136-145); TCO2 38 mmol/L (25-35); TOTAL BILIRUBIN 0.24 mg/dL (0.20-1.00); TOTAL PROTEIN 5.2 g/dL (6.3-8.3)
[2019-05-20 04:31] LABS: ALLEN TEST YES; BE 20.4 mmoll (-3.0-3.0); BLOOD TYPE ARTERIAL; HCO3-(ACT) 40.9 mmoll (20.0-26.0); METHB 1.4 % (0.0-1.5); O2(CT) 9.5 mL/dL (15.0-23.0); PO2(98.6) 105 mmHg (60-100); SAMPLE BLOOD; SAO2 99.1 % (95.0-100.0); SRATE 1 BPM; THB 6.9 g/dL (11.5-17.4); TVOL 470 mL; pH(98.6) 7.51 (7.35-7.45)
[2019-05-20 04:52] LABS: MODALITY VENTILATOR; PCO2(98.6) 57 mmHg (35-45)
[2019-05-20 06:11] LABS: AGAP 9; ALB/GLOB RATIO 2.1; ALBUMIN 3.5 g/dL (3.5-5.0); ALKALINE PHOSPHATASE 45 U/L (32-122); BUN 32 mg/dL (8-22); CALCIUM 8.9 mg/dL (8.8-10.2); CHLORIDE 102 mmol/L (98-107); COSMO 297; CREATININE 0.5 mg/dL (0.7-1.2); ESTIMATED GFR > 60; GLUCOSE 63 mg/dL (70-104); GOT 17 U/L (10-34); GPT 25 U/L (10-44); POTASSIUM 4.4 mmol/L (3.5-5.1); SODIUM 147 mmol/L (136-145); TCO2 36 mmol/L (25-35); TOTAL BILIRUBIN 0.24 mg/dL (0.20-1.00); TOTAL PROTEIN 5.2 g/dL (6.3-8.3)
[2019-05-20 06:28] LABS: MAGNESIUM 2.5 mg/dL (1.5-2.7); PHOSPHORUS 2.7 mg/dL (2.7-4.5)
[2019-05-20 08:09] LABS: BASO# 0.02 X1000 (0.0-0.2); BASO% 0.1 % (0.0-0.8); EOS# 0.19 X1000 (0.0-0.7); EOS% 1.3 % (0.0-10.0); HEMATOCRIT 24.5 % (42.0-52.0); HEMOGLOBIN 7.5 g/dL (14.0-18.0); IMM GRAN% 0.7 % (0.0-0.5); LYMPH# 2.98 X1000 (1.2-3.4); LYMPH% 19.7 % (20.5-51.1); MCH 30.9 PG (27-31); MCHC 30.6 g/dL (33-37); MCV 100.8 FL (81-99); MPV 10.1 FL (7.4-10.4); NEUT% 72.2 % (42.2-75.2); PLT 201 X1000 (130-400); RBC 2.43 XMIL (4.7-6.1); RDW 12.7 % (11.5-14.5); WBC 15.09 X1000 (4.8-10.8)
[2019-05-21 04:38] LABS: ALLEN TEST YES; BE 23.4 mmoll (-3.0-3.0); BLOOD TYPE ARTERIAL; HCO3-(ACT) 43.1 mmoll (20.0-26.0); METHB 1.3 % (0.0-1.5); O2(CT) 11.4 mL/dL (15.0-23.0); O2HB 91.9 % (95.0-99.0); PO2(98.6) 66 mmHg (60-100); SAMPLE BLOOD; SAO2 95.6 % (95.0-100.0); THB 8.8 g/dL (11.5-17.4); pH(98.6) 7.41 (7.35-7.45)
[2019-05-21 04:45] LABS: MODALITY VENTILATOR; PCO2(98.6) 81 mmHg (35-45)
[2019-05-21 06:32] LABS: MAGNESIUM 2.5 mg/dL (1.5-2.7); PHOSPHORUS 4.1 mg/dL (2.7-4.5)
[2019-05-21 06:34] LABS: ESTIMATED GFR > 60
[2019-05-21 06:36] LABS: BASO# 0.01 X1000 (0.0-0.2); BASO% 0.1 % (0.0-0.8); EOS# 0.07 X1000 (0.0-0.7); EOS% 0.5 % (0.0-10.0); HEMATOCRIT 26.5 % (42.0-52.0); HEMOGLOBIN 8.2 g/dL (14.0-18.0); IMM GRAN# 0.04 X1000 (0.0-0.04); IMM GRAN% 0.3 % (0.0-0.5); LYMPH# 1.49 X1000 (1.2-3.4); LYMPH% 10.2 % (20.5-51.1); MCH 31.4 PG (27-31); MCHC 30.9 g/dL (33-37); MCV 101.5 FL (81-99); MONO# 0.51 X1000 (0.11-0.59); MONO% 3.5 % (1.7-9.3); MPV 10.6 FL (7.4-10.4); NEUT% 85.4 % (42.2-75.2); PLT 223 X1000 (130-400); RBC 2.61 XMIL (4.7-6.1); RDW 12.8 % (11.5-14.5); WBC 14.62 X1000 (4.8-10.8)
[2019-05-21 06:37] LABS: AGAP 4; ALB/GLOB RATIO 2.2; ALBUMIN 4.2 g/dL (3.5-5.0); ALKALINE PHOSPHATASE 57 U/L (32-122); BUN 30 mg/dL (8-22); CALCIUM 8.7 mg/dL (8.8-10.2); CHLORIDE 97 mmol/L (98-107); COSMO 290; CREATININE 0.5 mg/dL (0.7-1.2); GLUCOSE 81 mg/dL (70-104); GOT 23 U/L (10-34); GPT 31 U/L (10-44); POTASSIUM 4.1 mmol/L (3.5-5.1); SODIUM 143 mmol/L (136-145); TCO2 42 mmol/L (25-35); TOTAL BILIRUBIN 0.45 mg/dL (0.20-1.00); TOTAL PROTEIN 6.1 g/dL (6.3-8.3)
[2019-05-22 04:40] LABS: ALLEN TEST YES; BE 18.8 mmoll (-3.0-3.0); BLOOD TYPE ARTERIAL; HCO3-(ACT) 39.5 mmoll (20.0-26.0); METHB 0.9 % (0.0-1.5); O2(CT) 10.5 mL/dL (15.0-23.0); PCO2(98.6) 43 mmHg (35-45); PO2(98.6) 50 mmHg (60-100); SAMPLE BLOOD; SAO2 92.1 % (95.0-100.0); THB 8.3 g/dL (11.5-17.4)
[2019-05-22 04:48] LABS: MODALITY VENTILATOR
[2019-05-22 04:50] LABS: O2HB 89.5 % (95.0-99.0)
[2019-05-22 06:35] LABS: EOS# 0.06 X1000 (0.0-0.7); EOS% 0.5 % (0.0-10.0); HEMOGLOBIN 8.1 g/dL (14.0-18.0); IMM GRAN# 0.04 X1000 (0.0-0.04); IMM GRAN% 0.4 % (0.0-0.5); LYMPH# 1.37 X1000 (1.2-3.4); LYMPH% 12.3 % (20.5-51.1); MCH 30.9 PG (27-31); MCHC 31.2 g/dL (33-37); MCV 99.2 FL (81-99); MONO# 0.32 X1000 (0.11-0.59); MONO% 2.9 % (1.7-9.3); MPV 10.4 FL (7.4-10.4); NEUT# 9.38 X1000 (1.4-6.5); NEUT% 83.9 % (42.2-75.2); PLT 203 X1000 (130-400); RBC 2.62 XMIL (4.7-6.1); RDW 12.7 % (11.5-14.5); WBC 11.17 X1000 (4.8-10.8)
[2019-05-22 06:47] LABS: MAGNESIUM 2.4 mg/dL (1.5-2.7); PHOSPHORUS 1.4 mg/dL (2.7-4.5)
[2019-05-22 06:53] LABS: AGAP 13; ALB/GLOB RATIO 1.4; ALBUMIN 3.6 g/dL (3.5-5.0); ALKALINE PHOSPHATASE 65 U/L (32-122); BUN 31 mg/dL (8-22); CALCIUM 9.1 mg/dL (8.8-10.2); CHLORIDE 102 mmol/L (98-107); COSMO 301; CREATININE 0.4 mg/dL (0.7-1.2); ESTIMATED GFR > 60; GLUCOSE 106 mg/dL (70-104); GOT 19 U/L (10-34); GPT 31 U/L (10-44); POTASSIUM 3.4 mmol/L (3.5-5.1); SODIUM 148 mmol/L (136-145); TCO2 33 mmol/L (25-35); TOTAL PROTEIN 6.1 g/dL (6.3-8.3)
[2019-05-23 04:34] LABS: ALLEN TEST YES; BE 10.6 mmoll (-3.0-3.0); BLOOD TYPE ARTERIAL; HCO3-(ACT) 33.2 mmoll (20.0-26.0); METHB 1.1 % (0.0-1.5); O2(CT) 12.3 mL/dL (15.0-23.0); O2HB 95.9 % (95.0-99.0); PCO2(98.6) 46 mmHg (35-45); PO2(98.6) 86 mmHg (60-100); SAMPLE BLOOD; SAO2 100.7 % (95.0-100.0); pH(98.6) 7.49 (7.35-7.45)
[2019-05-23 04:35] LABS: MODALITY VENTILATOR
[2019-05-23 06:24] LABS: EOS# 0.03 X1000 (0.0-0.7); EOS% 0.3 % (0.0-10.0); HEMATOCRIT 27.1 % (42.0-52.0); HEMOGLOBIN 8.5 g/dL (14.0-18.0); LYMPH# 0.79 X1000 (1.2-3.4); LYMPH% 8.3 % (20.5-51.1); MCH 30.8 PG (27-31); MCHC 31.4 g/dL (33-37); MCV 98.2 FL (81-99); MONO# 0.29 X1000 (0.11-0.59); MONO% 3.1 % (1.7-9.3); MPV 10.7 FL (7.4-10.4); NEUT# 8.39 X1000 (1.4-6.5); NEUT% 88.3 % (42.2-75.2); PLT 234 X1000 (130-400); RBC 2.76 XMIL (4.7-6.1); RDW 13.4 % (11.5-14.5)
[2019-05-23 06:33] LABS: MAGNESIUM 2.1 mg/dL (1.5-2.7); PHOSPHORUS 2.3 mg/dL (2.7-4.5)
[2019-05-23 06:44] LABS: AGAP 12; ALB/GLOB RATIO 1.3; ALBUMIN 3.6 g/dL (3.5-5.0); ALKALINE PHOSPHATASE 80 U/L (32-122); BUN 36 mg/dL (8-22); CALCIUM 9.1 mg/dL (8.8-10.2); CHLORIDE 100 mmol/L (98-107); COSMO 295; CREATININE 0.5 mg/dL (0.7-1.2); ESTIMATED GFR > 60; GLUCOSE 154 mg/dL (70-104); GOT 23 U/L (10-34); GPT 37 U/L (10-44); POTASSIUM 4.5 mmol/L (3.5-5.1); SODIUM 142 mmol/L (136-145); TCO2 30 mmol/L (25-35); TOTAL BILIRUBIN 0.42 mg/dL (0.20-1.00); TOTAL PROTEIN 6.3 g/dL (6.3-8.3)
[2019-05-23 13:40] LABS: COCCIDIOIDES AB CF/ID SERUM SEE COMMENTS
[2019-05-24 04:40] LABS: ALLEN TEST YES; BE 13.1 mmoll (-3.0-3.0); BLOOD TYPE ARTERIAL; HCO3-(ACT) 35.2 mmoll (20.0-26.0); METHB 1.2 % (0.0-1.5); O2(CT) 9.2 mL/dL (15.0-23.0); O2HB 95.2 % (95.0-99.0); PCO2(98.6) 42 mmHg (35-45); PO2(98.6) 74 mmHg (60-100); SAMPLE BLOOD; SAO2 98.6 % (95.0-100.0); THB 6.8 g/dL (11.5-17.4); pH(98.6) 7.55 (7.35-7.45)
[2019-05-24 04:41] LABS: MODALITY VENTILATOR
[2019-05-24 05:14] LABS: BASO# 0.01 X1000 (0.0-0.2); BASO% 0.1 % (0.0-0.8); EOS# 0.01 X1000 (0.0-0.7); EOS% 0.1 % (0.0-10.0); IMM GRAN# 0.03 X1000 (0.0-0.04); IMM GRAN% 0.3 % (0.0-0.5); LYMPH# 0.91 X1000 (1.2-3.4); LYMPH% 8.9 % (20.5-51.1); MCH 30.9 PG (27-31); MCHC 32.3 g/dL (33-37); MCV 95.7 FL (81-99); MONO# 0.54 X1000 (0.11-0.59); MONO% 5.3 % (1.7-9.3); MPV 10.1 FL (7.4-10.4); NEUT# 8.75 X1000 (1.4-6.5); NEUT% 85.3 % (42.2-75.2); PLT 279 X1000 (130-400); RBC 3.24 XMIL (4.7-6.1); RDW 13.3 % (11.5-14.5); WBC 10.25 X1000 (4.8-10.8)
[2019-05-24 05:35] LABS: PREALBUMIN 30.1 mg/dL (20-40)
[2019-05-24 06:03] LABS: AGAP 11; ALBUMIN 3.7 g/dL (3.5-5.0); ALKALINE PHOSPHATASE 98 U/L (32-122); BUN 33 mg/dL (8-22); CALCIUM 9.2 mg/dL (8.8-10.2); CHLORIDE 94 mmol/L (98-107); COSMO 284; CREATININE 0.6 mg/dL (0.7-1.2); ESTIMATED GFR > 60; GLUCOSE 189 mg/dL (70-104); GOT 25 U/L (10-34); GPT 64 U/L (10-44); POTASSIUM 3.9 mmol/L (3.5-5.1); SODIUM 136 mmol/L (136-145); TCO2 31 mmol/L (25-35); TOTAL BILIRUBIN 0.48 mg/dL (0.20-1.00); TOTAL PROTEIN 7.3 g/dL (6.3-8.3)
[2019-05-24 06:10] LABS: BANDS 6 % (0-1); LYMPHS 10 % (21-51); MONO 2 % (1-9); SEGS 80 % (42-75)
[2019-05-24 06:12] LABS: MAGNESIUM 2.1 mg/dL (1.5-2.7); PHOSPHORUS 2.4 mg/dL (2.7-4.5)
[2019-05-25 04:37] LABS: ALLEN TEST YES; BE 11.7 mmoll (-3.0-3.0); BLOOD TYPE ARTERIAL; HCO3-(ACT) 34.1 mmoll (20.0-26.0); METHB 0.6 % (0.0-1.5); O2(CT) 15.3 mL/dL (15.0-23.0); O2HB 97.2 % (95.0-99.0); PCO2(98.6) 39 mmHg (35-45); PO2(98.6) 106 mmHg (60-100); SAMPLE BLOOD; SAO2 100.5 % (95.0-100.0); THB 11.1 g/dL (11.5-17.4)
[2019-05-25 04:38] LABS: MODALITY VENTILATOR; pH(98.6) 7.56 (7.35-7.45)
[2019-05-25 05:48] LABS: BASO# 0.01 X1000 (0.0-0.2); BASO% 0.1 % (0.0-0.8); EOS# 0.07 X1000 (0.0-0.7); EOS% 0.7 % (0.0-10.0); HEMOGLOBIN 10.6 g/dL (14.0-18.0); IMM GRAN# 0.07 X1000 (0.0-0.04); IMM GRAN% 0.7 % (0.0-0.5); LYMPH# 1.75 X1000 (1.2-3.4); MCH 30.6 PG (27-31); MCHC 32.1 g/dL (33-37); MCV 95.4 FL (81-99); MONO# 0.71 X1000 (0.11-0.59); MONO% 6.9 % (1.7-9.3); MPV 10.2 FL (7.4-10.4); NEUT# 7.69 X1000 (1.4-6.5); NEUT% 74.6 % (42.2-75.2); PLT 281 X1000 (130-400); RBC 3.46 XMIL (4.7-6.1); RDW 13.2 % (11.5-14.5)
[2019-05-25 06:09] LABS: AGAP 7; ALBUMIN 3.7 g/dL (3.5-5.0); ALKALINE PHOSPHATASE 116 U/L (32-122); BUN 33 mg/dL (8-22); CALCIUM 9.3 mg/dL (8.8-10.2); CHLORIDE 91 mmol/L (98-107); COSMO 282; CREATININE 0.6 mg/dL (0.7-1.2); ESTIMATED GFR > 60; GLUCOSE 184 mg/dL (70-104); GOT 19 U/L (10-34); GPT 68 U/L (10-44); POTASSIUM 3.5 mmol/L (3.5-5.1); SODIUM 135 mmol/L (136-145); TCO2 37 mmol/L (25-35); TOTAL BILIRUBIN 0.43 mg/dL (0.20-1.00); TOTAL PROTEIN 7.3 g/dL (6.3-8.3)
[2019-05-25 07:42] LABS: PHOSPHORUS 2.9 mg/dL (2.7-4.5); PREALBUMIN 33.8 mg/dL (20-40)
[2019-05-25 12:19] LABS: INR 1.01; PROTIME 13.4 Seconds (11.0-16.0)
[2019-05-26 04:19] LABS: ALLEN TEST YES; BE 10.7 mmoll (-3.0-3.0); BLOOD TYPE ARTERIAL; HCO3-(ACT) 33.1 mmoll (20.0-26.0); METHB 0.7 % (0.0-1.5); O2(CT) 12.2 mL/dL (15.0-23.0); PO2(98.6) 52 mmHg (60-100); SAMPLE BLOOD; SAO2 90.2 % (95.0-100.0); THB 9.9 g/dL (11.5-17.4); pH(98.6) 7.45 (7.35-7.45)
[2019-05-26 04:21] LABS: O2HB 87.4 % (95.0-99.0); PCO2(98.6) 52 mmHg (35-45)
[2019-05-26 04:22] LABS: MODALITY BI PAP
[2019-05-26 07:46] LABS: AGAP 13; BUN 31 mg/dL (8-22); CALCIUM 8.7 mg/dL (8.8-10.2); CHLORIDE 97 mmol/L (98-107); COSMO 289; CREATININE 0.5 mg/dL (0.7-1.2); ESTIMATED GFR > 60; GLUCOSE 161 mg/dL (70-104); MAGNESIUM 2.1 mg/dL (1.5-2.7); PHOSPHORUS 2.6 mg/dL (2.7-4.5); POTASSIUM 3.4 mmol/L (3.5-5.1); SODIUM 140 mmol/L (136-145); TCO2 30 mmol/L (25-35)
[2019-05-26 07:50] LABS: AGAP 13; ALBUMIN 3.1 g/dL (3.5-5.0); ALKALINE PHOSPHATASE 109 U/L (32-122); BUN 30 mg/dL (8-22); CALCIUM 8.8 mg/dL (8.8-10.2); CHLORIDE 98 mmol/L (98-107); COSMO 289; CREATININE 0.5 mg/dL (0.7-1.2); ESTIMATED GFR > 60; GLUCOSE 165 mg/dL (70-104); GOT 16 U/L (10-34); GPT 55 U/L (10-44); POTASSIUM 3.4 mmol/L (3.5-5.1); SODIUM 140 mmol/L (136-145); TCO2 29 mmol/L (25-35); TOTAL PROTEIN 6.1 g/dL (6.3-8.3)
[2019-05-27 04:24] LABS: ALLEN TEST YES; BE 14.8 mmoll (-3.0-3.0); BLOOD TYPE ARTERIAL; HCO3-(ACT) 36.4 mmoll (20.0-26.0); METHB 1.5 % (0.0-1.5); O2(CT) 10.6 mL/dL (15.0-23.0); O2HB 92.1 % (95.0-99.0); PCO2(98.6) 48 mmHg (35-45); PO2(98.6) 61 mmHg (60-100); SAMPLE BLOOD; SAO2 97.8 % (95.0-100.0); THB 8.1 g/dL (11.5-17.4); pH(98.6) 7.52 (7.35-7.45)
[2019-05-27 04:25] LABS: MODALITY VENTILATOR
[2019-05-27 04:56] LABS: AGAP 9; ALBUMIN 3.1 g/dL (3.5-5.0); ALKALINE PHOSPHATASE 104 U/L (32-122); BUN 29 mg/dL (8-22); CALCIUM 8.8 mg/dL (8.8-10.2); CHLORIDE 94 mmol/L (98-107); COSMO 283; CREATININE 0.5 mg/dL (0.7-1.2); ESTIMATED GFR > 60; GLUCOSE 166 mg/dL (70-104); GOT 17 U/L (10-34); GPT 48 U/L (10-44); POTASSIUM 3.4 mmol/L (3.5-5.1); SODIUM 137 mmol/L (136-145); TCO2 34 mmol/L (25-35); TOTAL BILIRUBIN 0.32 mg/dL (0.20-1.00); TOTAL PROTEIN 6.1 g/dL (6.3-8.3)
[2019-05-27 05:04] LABS: BASO# 0.02 X1000 (0.0-0.2); BASO% 0.3 % (0.0-0.8); EOS# 0.09 X1000 (0.0-0.7); EOS% 1.1 % (0.0-10.0); HEMATOCRIT 27.2 % (42.0-52.0); HEMOGLOBIN 8.8 g/dL (14.0-18.0); IMM GRAN# 0.04 X1000 (0.0-0.04); IMM GRAN% 0.5 % (0.0-0.5); LYMPH# 1.86 X1000 (1.2-3.4); LYMPH% 23.3 % (20.5-51.1); MCHC 32.4 g/dL (33-37); MCV 95.8 FL (81-99); MONO# 0.48 X1000 (0.11-0.59); MPV 10.6 FL (7.4-10.4); NEUT# 5.51 X1000 (1.4-6.5); NEUT% 68.8 % (42.2-75.2); PLT 252 X1000 (130-400); RBC 2.84 XMIL (4.7-6.1); RDW 13.3 % (11.5-14.5)
[2019-05-27 10:05] LABS: MAGNESIUM 1.9 mg/dL (1.5-2.7); PHOSPHORUS 2.8 mg/dL (2.7-4.5)
[2019-05-28 04:41] LABS: ALLEN TEST YES; BLOOD TYPE ARTERIAL; SAMPLE BLOOD; pH(98.6) 7.53 (7.35-7.45)
[2019-05-28 04:43] LABS: MODALITY VENTILATOR
[2019-05-28 05:08] LABS: HEMATOCRIT 28.3 % (42.0-52.0); HEMOGLOBIN 9.2 g/dL (14.0-18.0); MCH 30.8 PG (27-31); MCHC 32.5 g/dL (33-37); MCV 94.6 FL (81-99); MPV 10.5 FL (7.4-10.4); RBC 2.99 XMIL (4.7-6.1); RDW 13.3 % (11.5-14.5); WBC 6.88 X1000 (4.8-10.8)
[2019-05-28 05:08] LABS: BE 15.7 mmoll (-3.0-3.0); HCO3-(ACT) 37.1 mmoll (20.0-26.0); METHB 1.8 % (0.0-1.5); O2(CT) 12.5 mL/dL (15.0-23.0); PCO2(98.6) 48 mmHg (35-45); PO2(98.6) 67 mmHg (60-100); SAO2 95.4 % (95.0-100.0); THB 9.6 g/dL (11.5-17.4)
[2019-05-28 05:14] LABS: O2HB 91.8 % (95.0-99.0)
[2019-05-28 05:40] LABS: AGAP 11; ALB/GLOB RATIO 0.9; ALKALINE PHOSPHATASE 102 U/L (32-122); BUN 25 mg/dL (8-22); CHLORIDE 93 mmol/L (98-107); COSMO 280; CREATININE 0.4 mg/dL (0.7-1.2); ESTIMATED GFR > 60; GLUCOSE 95 mg/dL (70-104); GOT 16 U/L (10-34); GPT 43 U/L (10-44); POTASSIUM 3.2 mmol/L (3.5-5.1); SODIUM 138 mmol/L (136-145); TCO2 34 mmol/L (25-35); TOTAL BILIRUBIN 0.26 mg/dL (0.20-1.00); TOTAL PROTEIN 6.3 g/dL (6.3-8.3)
[2019-05-29 04:31] LABS: ALLEN TEST YES; BE 13.7 mmoll (-3.0-3.0); BLOOD TYPE ARTERIAL; HCO3-(ACT) 35.5 mmoll (20.0-26.0); METHB 0.8 % (0.0-1.5); O2(CT) 12.4 mL/dL (15.0-23.0); PCO2(98.6) 48 mmHg (35-45); PO2(98.6) 58 mmHg (60-100); SAMPLE BLOOD; SAO2 93.4 % (95.0-100.0); THB 9.8 g/dL (11.5-17.4); pH(98.6) 7.51 (7.35-7.45)
[2019-05-29 04:32] LABS: MODALITY VENTILATOR
[2019-05-29 05:47] LABS: HEMATOCRIT 29.7 % (42.0-52.0); HEMOGLOBIN 9.4 g/dL (14.0-18.0); MCH 30.4 PG (27-31); MCHC 31.6 g/dL (33-37); MCV 96.1 FL (81-99); MPV 10.6 FL (7.4-10.4); RBC 3.09 XMIL (4.7-6.1); RDW 14.1 % (11.5-14.5); WBC 7.08 X1000 (4.8-10.8)
[2019-05-29 06:24] LABS: PHOSPHORUS 3.7 mg/dL (2.7-4.5)
[2019-05-29 06:38] LABS: AGAP 12; ALB/GLOB RATIO 0.9; ALKALINE PHOSPHATASE 154 U/L (32-122); BUN 25 mg/dL (8-22); CHLORIDE 97 mmol/L (98-107); COSMO 284; CREATININE 0.4 mg/dL (0.7-1.2); ESTIMATED GFR > 60; GLUCOSE 100 mg/dL (70-104); GOT 39 U/L (10-34); GPT 96 U/L (10-44); POTASSIUM 4.3 mmol/L (3.5-5.1); SODIUM 140 mmol/L (136-145); TCO2 31 mmol/L (25-35); TOTAL BILIRUBIN 0.31 mg/dL (0.20-1.00); TOTAL PROTEIN 6.4 g/dL (6.3-8.3)
[2019-05-30 04:37] LABS: ALLEN TEST YES; BE 18.4 mmoll (-3.0-3.0); BLOOD TYPE ARTERIAL; HCO3-(ACT) 39.2 mmoll (20.0-26.0); METHB 0.2 % (0.0-1.5); O2(CT) 12.4 mL/dL (15.0-23.0); O2HB 90.8 % (95.0-99.0); PO2(98.6) 57 mmHg (60-100); SAMPLE BLOOD; SAO2 94.4 % (95.0-100.0); THB 9.7 g/dL (11.5-17.4); pH(98.6) 7.49 (7.35-7.45)
[2019-05-30 04:49] LABS: MODALITY VENTILATOR
[2019-05-30 04:50] LABS: PCO2(98.6) 58 mmHg (35-45)
[2019-05-30 06:31] LABS: HEMATOCRIT 32.3 % (42.0-52.0); HEMOGLOBIN 10.3 g/dL (14.0-18.0); MCHC 31.9 g/dL (33-37); MCV 97.3 FL (81-99); MPV 10.5 FL (7.4-10.4); RBC 3.32 XMIL (4.7-6.1); RDW 14.1 % (11.5-14.5); WBC 8.28 X1000 (4.8-10.8)
[2019-05-30 06:56] LABS: ESTIMATED GFR > 60
[2019-05-30 07:02] LABS: AGAP 13; ALB/GLOB RATIO 0.8; ALBUMIN 3.2 g/dL (3.5-5.0); ALKALINE PHOSPHATASE 184 U/L (32-122); BUN 23 mg/dL (8-22); CHLORIDE 86 mmol/L (98-107); CHOLESTEROL 287 mg/dL (0-200); COSMO 273; CREATININE 0.5 mg/dL (0.7-1.2); GLUCOSE 115 mg/dL (70-104); GOT 28 U/L (10-34); GPT 96 U/L (10-44); PHOSPHORUS 4.5 mg/dL (2.7-4.5); POTASSIUM 3.8 mmol/L (3.5-5.1); PREALBUMIN 26.7 mg/dL (20-40); SODIUM 134 mmol/L (136-145); TCO2 35 mmol/L (25-35); TOTAL BILIRUBIN 0.34 mg/dL (0.20-1.00); TOTAL PROTEIN 7.1 g/dL (6.3-8.3); TRIGLYCERIDES 203 mg/dL (39-160)
[2019-05-30 08:28] LABS: CALCIUM 9.7 mg/dL (8.8-10.2)
[2019-05-31 05:10] LABS: ALLEN TEST YES; BE 17.4 mmoll (-3.0-3.0); BLOOD TYPE ARTERIAL; HCO3-(ACT) 38.4 mmoll (20.0-26.0); O2HB 91.2 % (95.0-99.0); PO2(98.6) 63 mmHg (60-100); SAMPLE BLOOD; SAO2 95.7 % (95.0-100.0); THB 12.5 g/dL (11.5-17.4); pH(98.6) 7.43 (7.35-7.45)
[2019-05-31 05:15] LABS: MODALITY VENTILATOR; PCO2(98.6) 68 mmHg (35-45)
[2019-05-31 06:19] LABS: HEMATOCRIT 31.7 % (42.0-52.0); HEMOGLOBIN 10.2 g/dL (14.0-18.0); MCH 31.1 PG (27-31); MCHC 32.2 g/dL (33-37); MCV 96.6 FL (81-99); MPV 10.5 FL (7.4-10.4); RBC 3.28 XMIL (4.7-6.1); RDW 13.9 % (11.5-14.5); WBC 8.86 X1000 (4.8-10.8)
[2019-05-31 07:19] LABS: AGAP 14; ALB/GLOB RATIO 1.1; ALBUMIN 3.4 g/dL (3.5-5.0); ALKALINE PHOSPHATASE 183 U/L (32-122); BUN 33 mg/dL (8-22); CALCIUM 9.3 mg/dL (8.8-10.2); CHLORIDE 91 mmol/L (98-107); COSMO 294; CREATININE 0.5 mg/dL (0.7-1.2); ESTIMATED GFR > 60; GLUCOSE 89 mg/dL (70-104); GOT 27 U/L (10-34); GPT 83 U/L (10-44); PHOSPHORUS 4.5 mg/dL (2.7-4.5); SODIUM 144 mmol/L (136-145); TCO2 39 mmol/L (25-35); TOTAL BILIRUBIN 0.33 mg/dL (0.20-1.00); TOTAL PROTEIN 6.6 g/dL (6.3-8.3)
[2019-06-01 04:37] LABS: ALLEN TEST YES; BLOOD TYPE ARTERIAL; HCO3-(ACT) 40.5 mmoll (20.0-26.0); METHB 0.9 % (0.0-1.5); O2(CT) 12.6 mL/dL (15.0-23.0); O2HB 92.9 % (95.0-99.0); PO2(98.6) 67 mmHg (60-100); SAMPLE BLOOD; SAO2 96.1 % (95.0-100.0); SRATE 28 BPM; THB 9.6 g/dL (11.5-17.4); pH(98.6) 7.51 (7.35-7.45)
[2019-06-01 04:38] LABS: MODALITY VENTILATOR; PCO2(98.6) 57 mmHg (35-45)
[2019-06-01 06:33] LABS: HEMATOCRIT 29.3 % (42.0-52.0); HEMOGLOBIN 9.3 g/dL (14.0-18.0); MCH 29.9 PG (27-31); MCHC 31.7 g/dL (33-37); MCV 94.2 FL (81-99); MPV 10.1 FL (7.4-10.4); RBC 3.11 XMIL (4.7-6.1); RDW 12.8 % (11.5-14.5); WBC 8.08 X1000 (4.8-10.8)
[2019-06-01 07:04] LABS: AGAP 11; ALB/GLOB RATIO 0.8; ALKALINE PHOSPHATASE 156 U/L (32-122); BUN 32 mg/dL (8-22); CALCIUM 9.3 mg/dL (8.8-10.2); CHLORIDE 91 mmol/L (98-107); COSMO 285; CREATININE 0.4 mg/dL (0.7-1.2); ESTIMATED GFR > 60; GLUCOSE 143 mg/dL (70-104); GOT 19 U/L (10-34); GPT 62 U/L (10-44); POTASSIUM 3.6 mmol/L (3.5-5.1); SODIUM 138 mmol/L (136-145); TCO2 36 mmol/L (25-35); TOTAL PROTEIN 6.9 g/dL (6.3-8.3)
[2019-06-02 05:34] LABS: ALLEN TEST YES; BE 12.9 mmoll (-3.0-3.0); BLOOD TYPE ARTERIAL; METHB 1.5 % (0.0-1.5); O2(CT) 10.9 mL/dL (15.0-23.0); O2HB 94.5 % (95.0-99.0); PCO2(98.6) 44 mmHg (35-45); PO2(98.6) 86 mmHg (60-100); SAMPLE BLOOD; SAO2 98.7 % (95.0-100.0); SRATE 24 BPM; THB 8.1 g/dL (11.5-17.4); pH(98.6) 7.53 (7.35-7.45)
[2019-06-02 05:36] LABS: MODALITY VENTILATOR
[2019-06-02 06:05] LABS: HEMATOCRIT 25.9 % (42.0-52.0); HEMOGLOBIN 8.4 g/dL (14.0-18.0); MCH 31.1 PG (27-31); MCHC 32.4 g/dL (33-37); MCV 95.9 FL (81-99); MPV 10.1 FL (7.4-10.4); RBC 2.7 XMIL (4.7-6.1); RDW 13.4 % (11.5-14.5); WBC 8.76 X1000 (4.8-10.8)
[2019-06-02 06:24] LABS: AGAP 14; ALB/GLOB RATIO 0.8; ALBUMIN 2.7 g/dL (3.5-5.0); ALKALINE PHOSPHATASE 124 U/L (32-122); BUN 26 mg/dL (8-22); CALCIUM 8.7 mg/dL (8.8-10.2); CHLORIDE 94 mmol/L (98-107); COSMO 287; CREATININE 0.4 mg/dL (0.7-1.2); ESTIMATED GFR > 60; GLUCOSE 151 mg/dL (70-104); GOT 16 U/L (10-34); GPT 41 U/L (10-44); POTASSIUM 3.8 mmol/L (3.5-5.1); SODIUM 140 mmol/L (136-145); TCO2 32 mmol/L (25-35); TOTAL BILIRUBIN 0.32 mg/dL (0.20-1.00); TOTAL PROTEIN 6.2 g/dL (6.3-8.3)
[2019-06-03 05:08] LABS: ALLEN TEST YES; BE 8.6 mmoll (-3.0-3.0); BLOOD TYPE ARTERIAL; HCO3-(ACT) 31.5 mmoll (20.0-26.0); METHB 1.2 % (0.0-1.5); PCO2(98.6) 47 mmHg (35-45); PO2(98.6) 58 mmHg (60-100); SAMPLE BLOOD; SAO2 92.3 % (95.0-100.0); SRATE 24 BPM; THB 9.6 g/dL (11.5-17.4); pH(98.6) 7.46 (7.35-7.45)
[2019-06-03 05:10] LABS: MODALITY VENTILATOR; O2HB 88.7 % (95.0-99.0)
[2019-06-03 05:17] LABS: HEMATOCRIT 30.4 % (42.0-52.0); HEMOGLOBIN 9.6 g/dL (14.0-18.0); MCH 30.6 PG (27-31); MCHC 31.6 g/dL (33-37); MCV 96.8 FL (81-99); MPV 9.7 FL (7.4-10.4); RBC 3.14 XMIL (4.7-6.1); RDW 13.9 % (11.5-14.5); WBC 12.74 X1000 (4.8-10.8)
[2019-06-03 05:32] LABS: AGAP 13; ALB/GLOB RATIO 0.8; ALBUMIN 2.9 g/dL (3.5-5.0); ALKALINE PHOSPHATASE 136 U/L (32-122); BUN 29 mg/dL (8-22); CHLORIDE 94 mmol/L (98-107); COSMO 286; CREATININE 0.4 mg/dL (0.7-1.2); ESTIMATED GFR > 60; GLUCOSE 239 mg/dL (70-104); GOT 14 U/L (10-34); GPT 38 U/L (10-44); POTASSIUM 3.8 mmol/L (3.5-5.1); SODIUM 136 mmol/L (136-145); TCO2 29 mmol/L (25-35); TOTAL BILIRUBIN 0.32 mg/dL (0.20-1.00); TOTAL PROTEIN 6.4 g/dL (6.3-8.3)
[2019-06-04 04:37] LABS: ALLEN TEST YES; BE 9.9 mmoll (-3.0-3.0); BLOOD TYPE ARTERIAL; HCO3-(ACT) 32.6 mmoll (20.0-26.0); METHB 0.8 % (0.0-1.5); O2(CT) 14.9 mL/dL (15.0-23.0); O2HB 96.4 % (95.0-99.0); PCO2(98.6) 48 mmHg (35-45); PO2(98.6) 124 mmHg (60-100); SAMPLE BLOOD; SAO2 99.6 % (95.0-100.0); SRATE 24 BPM; THB 10.8 g/dL (11.5-17.4); pH(98.6) 7.47 (7.35-7.45)
[2019-06-04 04:38] LABS: MODALITY VENTILATOR
[2019-06-04 06:37] LABS: HEMATOCRIT 33.5 % (42.0-52.0); HEMOGLOBIN 10.4 g/dL (14.0-18.0); MCV 99.7 FL (81-99); MPV 10.6 FL (7.4-10.4); RBC 3.36 XMIL (4.7-6.1); RDW 14.3 % (11.5-14.5); WBC 16.33 X1000 (4.8-10.8)
[2019-06-04 07:34] LABS: AGAP 18; ALB/GLOB RATIO 0.9; ALBUMIN 3.2 g/dL (3.5-5.0); ALKALINE PHOSPHATASE 147 U/L (32-122); BUN 31 mg/dL (8-22); CALCIUM 8.9 mg/dL (8.8-10.2); CHLORIDE 91 mmol/L (98-107); COSMO 288; CREATININE 0.4 mg/dL (0.7-1.2); ESTIMATED GFR > 60; GLUCOSE 262 mg/dL (70-104); GOT 35 U/L (10-34); GPT 59 U/L (10-44); POTASSIUM 4.7 mmol/L (3.5-5.1); SODIUM 136 mmol/L (136-145); TCO2 27 mmol/L (25-35); TOTAL PROTEIN 6.6 g/dL (6.3-8.3)
[2019-06-05 04:46] LABS: ALLEN TEST YES; BE 14.9 mmoll (-3.0-3.0); BLOOD TYPE ARTERIAL; HCO3-(ACT) 36.4 mmoll (20.0-26.0); METHB 0.5 % (0.0-1.5); O2(CT) 14.6 mL/dL (15.0-23.0); PO2(98.6) 55 mmHg (60-100); SAMPLE BLOOD; SAO2 93.6 % (95.0-100.0); SRATE 24 BPM; THB 11.5 g/dL (11.5-17.4); TVOL 30 mL; pH(98.6) 7.43 (7.35-7.45)
[2019-06-05 04:47] LABS: MODALITY VENTILATOR; PCO2(98.6) 63 mmHg (35-45)
[2019-06-05 06:48] LABS: AGAP 14; ALB/GLOB RATIO 0.9; ALKALINE PHOSPHATASE 138 U/L (32-122); BUN 28 mg/dL (8-22); CALCIUM 8.5 mg/dL (8.8-10.2); CHLORIDE 93 mmol/L (98-107); COSMO 287; CREATININE 0.4 mg/dL (0.7-1.2); ESTIMATED GFR > 60; GLUCOSE 164 mg/dL (70-104); GOT 27 U/L (10-34); GPT 79 U/L (10-44); POTASSIUM 4.4 mmol/L (3.5-5.1); SODIUM 139 mmol/L (136-145); TCO2 32 mmol/L (25-35); TOTAL BILIRUBIN 0.34 mg/dL (0.20-1.00); TOTAL PROTEIN 6.2 g/dL (6.3-8.3)
[2019-06-05 07:06] LABS: HEMATOCRIT 33.6 % (42.0-52.0); HEMOGLOBIN 10.4 g/dL (14.0-18.0); MCH 30.1 PG (27-31); MCV 97.1 FL (81-99); MPV 9.4 FL (7.4-10.4); RBC 3.46 XMIL (4.7-6.1); RDW 14.1 % (11.5-14.5); WBC 16.21 X1000 (4.8-10.8)
[2019-06-06 05:05] LABS: ALLEN TEST YES; BE 11.1 mmoll (-3.0-3.0); BLOOD TYPE ARTERIAL; HCO3-(ACT) 33.5 mmoll (20.0-26.0); METHB 1.4 % (0.0-1.5); O2HB 92.4 % (95.0-99.0); PCO2(98.6) 47 mmHg (35-45); PO2(98.6) 74 mmHg (60-100); SAMPLE BLOOD; SAO2 95.9 % (95.0-100.0); SRATE 24 BPM; THB 11.5 g/dL (11.5-17.4); pH(98.6) 7.49 (7.35-7.45)
[2019-06-06 05:06] LABS: MODALITY VENTILATOR
[2019-06-06 06:13] LABS: BASO# 0.04 X1000 (0.0-0.2); BASO% 0.2 % (0.0-0.8); EOS# 0.05 X1000 (0.0-0.7); EOS% 0.3 % (0.0-10.0); HEMOGLOBIN 10.8 g/dL (14.0-18.0); IMM GRAN# 0.47 X1000 (0.0-0.04); IMM GRAN% 2.7 % (0.0-0.5); LYMPH% 6.8 % (20.5-51.1); MCH 29.8 PG (27-31); MCHC 30.9 g/dL (33-37); MCV 96.7 FL (81-99); MONO# 0.76 X1000 (0.11-0.59); MONO% 4.3 % (1.7-9.3); MPV 9.6 FL (7.4-10.4); NEUT# 15.02 X1000 (1.4-6.5); NEUT% 85.7 % (42.2-75.2); PLT 704 X1000 (130-400); RBC 3.62 XMIL (4.7-6.1); RDW 14.8 % (11.5-14.5); WBC 17.54 X1000 (4.8-10.8)
[2019-06-06 06:39] LABS: BANDS 2 % (0-1); LYMPHS 4 % (21-51); NRBC 1 % (0-0); SEGS 86 % (42-75)
[2019-06-06 06:51] LABS: AGAP 14; ALBUMIN 3.1 g/dL (3.5-5.0); ALKALINE PHOSPHATASE 142 U/L (32-122); BUN 29 mg/dL (8-22); CALCIUM 8.8 mg/dL (8.8-10.2); CHLORIDE 95 mmol/L (98-107); COSMO 291; CREATININE 0.3 mg/dL (0.7-1.2); ESTIMATED GFR > 60; GLUCOSE 239 mg/dL (70-104); GOT 19 U/L (10-34); GPT 62 U/L (10-44); POTASSIUM 4.4 mmol/L (3.5-5.1); SODIUM 139 mmol/L (136-145); TCO2 30 mmol/L (25-35); TOTAL BILIRUBIN 0.43 mg/dL (0.20-1.00); TOTAL PROTEIN 6.1 g/dL (6.3-8.3)
[2019-06-07 04:38] LABS: ALLEN TEST YES; BLOOD TYPE ARTERIAL; HCO3-(ACT) 34.9 mmoll (20.0-26.0); METHB 1.1 % (0.0-1.5); O2(CT) 14.4 mL/dL (15.0-23.0); O2HB 90.2 % (95.0-99.0); PO2(98.6) 64 mmHg (60-100); SAMPLE BLOOD; SAO2 93.5 % (95.0-100.0); SRATE 15 BPM; THB 11.3 g/dL (11.5-17.4); TVOL 560 mL; pH(98.6) 7.47 (7.35-7.45)
[2019-06-07 04:39] LABS: MODALITY VENTILATOR
[2019-06-07 04:40] LABS: PCO2(98.6) 53 mmHg (35-45)
[2019-06-07 05:58] LABS: HEMOGLOBIN 10.7 g/dL (14.0-18.0); MCH 30.7 PG (27-31); MCHC 31.5 g/dL (33-37); MCV 97.7 FL (81-99); MPV 9.9 FL (7.4-10.4); RBC 3.48 XMIL (4.7-6.1); WBC 21.89 X1000 (4.8-10.8)
[2019-06-07 06:00] LABS: AGAP 11; ALB/GLOB RATIO 1.1; ALKALINE PHOSPHATASE 135 U/L (32-122); BUN 37 mg/dL (8-22); CALCIUM 8.8 mg/dL (8.8-10.2); CHLORIDE 93 mmol/L (98-107); COSMO 285; CREATININE 0.4 mg/dL (0.7-1.2); ESTIMATED GFR > 60; GLUCOSE 245 mg/dL (70-104); GOT 18 U/L (10-34); GPT 57 U/L (10-44); POTASSIUM 4.7 mmol/L (3.5-5.1); SODIUM 134 mmol/L (136-145); TCO2 30 mmol/L (25-35); TOTAL BILIRUBIN 0.49 mg/dL (0.20-1.00); TOTAL PROTEIN 5.8 g/dL (6.3-8.3)
[2019-06-08 04:49] LABS: ALLEN TEST YES; BE 11.7 mmoll (-3.0-3.0); BLOOD TYPE ARTERIAL; HCO3-(ACT) 33.8 mmoll (20.0-26.0); METHB 1.1 % (0.0-1.5); O2(CT) 15.7 mL/dL (15.0-23.0); PO2(98.6) 61 mmHg (60-100); SAMPLE BLOOD; SAO2 91.3 % (95.0-100.0); SRATE 15 BPM; THB 12.7 g/dL (11.5-17.4); TVOL 550 mL; pH(98.6) 7.39 (7.35-7.45)
[2019-06-08 04:50] LABS: MODALITY VENTILATOR; O2HB 87.7 % (95.0-99.0); PCO2(98.6) 65 mmHg (35-45)
[2019-06-08 05:24] LABS: HEMATOCRIT 31.7 % (42.0-52.0); HEMOGLOBIN 10.1 g/dL (14.0-18.0); MCH 31.4 PG (27-31); MCHC 31.9 g/dL (33-37); MCV 98.4 FL (81-99); RBC 3.22 XMIL (4.7-6.1); RDW 14.8 % (11.5-14.5); WBC 17.17 X1000 (4.8-10.8)
[2019-06-08 05:32] LABS: INR 1.03; PROTIME 13.6 Seconds (11.0-16.0)
[2019-06-08 05:45] LABS: C REACTIVE PROT QUANT 1.22 mg/L (0.00-5.00)
[2019-06-08 05:59] LABS: PREALBUMIN 44.1 mg/dL (20-40)
[2019-06-08 06:18] LABS: AGAP 16; ALB/GLOB RATIO 1.1; ALBUMIN 2.9 g/dL (3.5-5.0); ALKALINE PHOSPHATASE 108 U/L (32-122); BUN 34 mg/dL (8-22); CALCIUM 9.1 mg/dL (8.8-10.2); CHLORIDE 93 mmol/L (98-107); COSMO 290; CREATININE 0.3 mg/dL (0.7-1.2); ESTIMATED GFR > 60; GLUCOSE 218 mg/dL (70-104); GOT 16 U/L (10-34); GPT 55 U/L (10-44); POTASSIUM 3.9 mmol/L (3.5-5.1); SODIUM 138 mmol/L (136-145); TCO2 29 mmol/L (25-35); TOTAL BILIRUBIN 0.41 mg/dL (0.20-1.00); TOTAL PROTEIN 5.6 g/dL (6.3-8.3)
[2019-06-09 04:45] LABS: ALLEN TEST YES; BE 17.5 mmoll (-3.0-3.0); BLOOD TYPE ARTERIAL; HCO3-(ACT) 38.5 mmoll (20.0-26.0); METHB 1.2 % (0.0-1.5); O2(CT) 12.9 mL/dL (15.0-23.0); O2HB 92.3 % (95.0-99.0); PO2(98.6) 70 mmHg (60-100); SAMPLE BLOOD; SAO2 95.6 % (95.0-100.0); SRATE 15 BPM; THB 9.9 g/dL (11.5-17.4); TVOL 560 mL; pH(98.6) 7.52 (7.35-7.45)
[2019-06-09 04:47] LABS: MODALITY VENTILATOR; PCO2(98.6) 52 mmHg (35-45)
[2019-06-09 08:27] LABS: HEMATOCRIT 30.8 % (42.0-52.0); HEMOGLOBIN 9.5 g/dL (14.0-18.0); MCH 30.2 PG (27-31); MCHC 30.8 g/dL (33-37); MCV 97.8 FL (81-99); MPV 10.3 FL (7.4-10.4); RBC 3.15 XMIL (4.7-6.1); RDW 14.5 % (11.5-14.5); WBC 15.39 X1000 (4.8-10.8)
[2019-06-09 08:55] LABS: AGAP 7; ALB/GLOB RATIO 1.2; ALBUMIN 2.8 g/dL (3.5-5.0); ALKALINE PHOSPHATASE 100 U/L (32-122); BUN 34 mg/dL (8-22); CALCIUM 9.1 mg/dL (8.8-10.2); CHLORIDE 93 mmol/L (98-107); COSMO 282; CREATININE 0.3 mg/dL (0.7-1.2); ESTIMATED GFR > 60; GLUCOSE 141 mg/dL (70-104); GOT 26 U/L (10-34); GPT 68 U/L (10-44); POTASSIUM 3.9 mmol/L (3.5-5.1); SODIUM 136 mmol/L (136-145); TCO2 36 mmol/L (25-35); TOTAL PROTEIN 5.2 g/dL (6.3-8.3)
[2019-06-10 04:44] LABS: ALLEN TEST YES; BE 13.7 mmoll (-3.0-3.0); BLOOD TYPE ARTERIAL; HCO3-(ACT) 35.6 mmoll (20.0-26.0); METHB 1.1 % (0.0-1.5); O2(CT) 14.7 mL/dL (15.0-23.0); O2HB 95.6 % (95.0-99.0); PO2(98.6) 103 mmHg (60-100); SAMPLE BLOOD; SRATE 15 BPM; THB 10.8 g/dL (11.5-17.4); TVOL 560 mL; pH(98.6) 7.47 (7.35-7.45)
[2019-06-10 04:45] LABS: MODALITY VENTILATOR; PCO2(98.6) 54 mmHg (35-45)
[2019-06-10 06:00] LABS: HEMATOCRIT 34.2 % (42.0-52.0); HEMOGLOBIN 10.9 g/dL (14.0-18.0); MCH 31.5 PG (27-31); MCHC 31.9 g/dL (33-37); MCV 98.8 FL (81-99); MPV 11.3 FL (7.4-10.4); RBC 3.46 XMIL (4.7-6.1); WBC 26.22 X1000 (4.8-10.8)
[2019-06-10 06:40] LABS: AGAP 11; ALBUMIN 2.6 g/dL (3.5-5.0); ALKALINE PHOSPHATASE 118 U/L (32-122); BUN 26 mg/dL (8-22); CALCIUM 9.1 mg/dL (8.8-10.2); CHLORIDE 93 mmol/L (98-107); COSMO 279; CREATININE 0.3 mg/dL (0.7-1.2); ESTIMATED GFR > 60; GLUCOSE 167 mg/dL (70-104); GOT 26 U/L (10-34); GPT 57 U/L (10-44); POTASSIUM 4.3 mmol/L (3.5-5.1); SODIUM 135 mmol/L (136-145); TCO2 31 mmol/L (25-35); TOTAL BILIRUBIN 0.43 mg/dL (0.20-1.00); TOTAL PROTEIN 5.3 g/dL (6.3-8.3)
[2019-06-10 10:29] LABS: URINE SOURCE CATH
[2019-06-10 10:36] LABS: BILIRUBIN URINE NEGATIVE (NEGATIVE); BLOOD URINE LARGE (NEGATIVE); COLOR STRAW; GLUCOSE URINE TRACE mg/dL (NEGATIVE); KETONE URINE NEGATIVE (NEGATIVE); LEUKOCYTES URINE NEGATIVE (NEGATIVE); NITRITE URINE NEGATIVE (NEGATIVE); PROTEIN URINE NEGATIVE (NEGATIVE); SP GRAVITY URINE 1.008; TURBIDITY URINE CLEAR (CLEAR); UR EPITHELIAL CELLS <10 /HPF (<10); URINE BACTERIA NEGATIVE /HPF; URINE RBC TNTC /HPF (<10); URINE WBC <10 /HPF (<10); UROBILINOGEN URINE NORMAL (NORMAL)
[2019-06-11 04:35] LABS: ALLEN TEST YES; BE 18.3 mmoll (-3.0-3.0); BLOOD TYPE ARTERIAL; HCO3-(ACT) 39.1 mmoll (20.0-26.0); METHB 1.4 % (0.0-1.5); O2(CT) 14.4 mL/dL (15.0-23.0); O2HB 92.7 % (95.0-99.0); PCO2(98.6) 45 mmHg (35-45); PO2(98.6) 67 mmHg (60-100); SAMPLE BLOOD; SAO2 96.7 % (95.0-100.0); SRATE 15 BPM; TVOL 560 mL
[2019-06-11 04:37] LABS: MODALITY VENTILATOR; pH(98.6) 7.58 (7.35-7.45)
[2019-06-11 06:24] LABS: HEMOGLOBIN 10.7 g/dL (14.0-18.0); MCH 30.6 PG (27-31); MCHC 31.5 g/dL (33-37); MCV 97.1 FL (81-99); MPV 10.9 FL (7.4-10.4); RBC 3.5 XMIL (4.7-6.1); RDW 14.5 % (11.5-14.5); WBC 30.3 X1000 (4.8-10.8)
[2019-06-11 06:50] LABS: AGAP 6; ALBUMIN 2.6 g/dL (3.5-5.0); ALKALINE PHOSPHATASE 115 U/L (32-122); BUN 25 mg/dL (8-22); CHLORIDE 94 mmol/L (98-107); COSMO 278; CREATININE 0.2 mg/dL (0.7-1.2); ESTIMATED GFR > 60; GLUCOSE 93 mg/dL (70-104); GOT 29 U/L (10-34); GPT 48 U/L (10-44); POTASSIUM 3.7 mmol/L (3.5-5.1); SODIUM 137 mmol/L (136-145); TCO2 37 mmol/L (25-35); TOTAL BILIRUBIN 0.44 mg/dL (0.20-1.00); TOTAL PROTEIN 5.1 g/dL (6.3-8.3)
[2019-06-11 07:18] LABS: MAGNESIUM 2.2 mg/dL (1.5-2.7); PHOSPHORUS 2.1 mg/dL (2.7-4.5)
[2019-06-12 05:06] LABS: ALLEN TEST YES; BLOOD TYPE ARTERIAL; HCO3-(ACT) 38.1 mmoll (20.0-26.0); O2(CT) 18.2 mL/dL (15.0-23.0); PCO2(98.6) 45 mmHg (35-45); PO2(98.6) 66 mmHg (60-100); SAMPLE BLOOD; SAO2 97.3 % (95.0-100.0); SRATE 15 BPM; THB 13.9 g/dL (11.5-17.4); TVOL 560 mL
[2019-06-12 05:07] LABS: pH(98.6) 7.57 (7.35-7.45)
[2019-06-12 05:08] LABS: MODALITY VENTILATOR
[2019-06-12 06:50] LABS: HEMATOCRIT 36.3 % (42.0-52.0); HEMOGLOBIN 11.8 g/dL (14.0-18.0); MCH 31.3 PG (27-31); MCHC 32.5 g/dL (33-37); MCV 96.3 FL (81-99); MPV 11.6 FL (7.4-10.4); RBC 3.77 XMIL (4.7-6.1); WBC 38.58 X1000 (4.8-10.8)
[2019-06-12 07:40] LABS: AGAP 11; ALB/GLOB RATIO 0.9; ALBUMIN 2.5 g/dL (3.5-5.0); ALKALINE PHOSPHATASE 129 U/L (32-122); BUN 24 mg/dL (8-22); CALCIUM 9.2 mg/dL (8.8-10.2); CHLORIDE 99 mmol/L (98-107); COSMO 289; CREATININE 0.2 mg/dL (0.7-1.2); ESTIMATED GFR > 60; GLUCOSE 66 mg/dL (70-104); GOT 30 U/L (10-34); GPT 48 U/L (10-44); POTASSIUM 3.6 mmol/L (3.5-5.1); SODIUM 144 mmol/L (136-145); TCO2 34 mmol/L (25-35); TOTAL BILIRUBIN 0.55 mg/dL (0.20-1.00); TOTAL PROTEIN 5.3 g/dL (6.3-8.3)
[2019-06-12 16:12] LABS: BASO# 0.03 X1000 (0.0-0.2); BASO% 0.1 % (0.0-0.8); EOS# 0.06 X1000 (0.0-0.7); EOS% 0.1 % (0.0-10.0); HEMATOCRIT 39.8 % (42.0-52.0); HEMOGLOBIN 12.4 g/dL (14.0-18.0); IMM GRAN# 0.23 X1000 (0.0-0.04); IMM GRAN% 0.6 % (0.0-0.5); LYMPH# 1.21 X1000 (1.2-3.4); MCHC 31.2 g/dL (33-37); MCV 96.4 FL (81-99); MONO# 1.22 X1000 (0.11-0.59); MPV 10.9 FL (7.4-10.4); NEUT# 38.19 X1000 (1.4-6.5); NEUT% 93.2 % (42.2-75.2); PLT 465 X1000 (130-400); RBC 4.13 XMIL (4.7-6.1); RDW 14.9 % (11.5-14.5); WBC 40.94 X1000 (4.8-10.8)
[2019-06-12 16:32] LABS: BANDS 2 % (0-1); LYMPHS 3 % (21-51); MONO 1 % (1-9); SEGS 94 % (42-75)
[2019-06-12 17:10] LABS: CK INDEX 3.9 (0.0-2.5); CK-MB 10.82 ng/mL (0.0-5.0)
[2019-06-13 04:45] LABS: ALLEN TEST YES; BLOOD TYPE ARTERIAL; HCO3-(ACT) 31.8 mmoll (20.0-26.0); O2(CT) 14.6 mL/dL (15.0-23.0); PO2(98.6) 64 mmHg (60-100); SAMPLE BLOOD; SAO2 93.9 % (95.0-100.0); SRATE 15 BPM; THB 11.5 g/dL (11.5-17.4); TVOL 560 mL; pH(98.6) 7.44 (7.35-7.45)
[2019-06-13 04:46] LABS: MODALITY VENTILATOR; O2HB 89.9 % (95.0-99.0); PCO2(98.6) 51 mmHg (35-45)
[2019-06-13 07:30] LABS: AGAP 15; ALB/GLOB RATIO 1.1; ALBUMIN 2.7 g/dL (3.5-5.0); ALKALINE PHOSPHATASE 144 U/L (32-122); BUN 24 mg/dL (8-22); CALCIUM 8.9 mg/dL (8.8-10.2); CHLORIDE 98 mmol/L (98-107); COSMO 286; CREATININE 0.2 mg/dL (0.7-1.2); ESTIMATED GFR > 60; GLUCOSE 150 mg/dL (70-104); GOT 44 U/L (10-34); GPT 99 U/L (10-44); SODIUM 140 mmol/L (136-145); TCO2 27 mmol/L (25-35); TOTAL BILIRUBIN 0.95 mg/dL (0.20-1.00); TOTAL PROTEIN 5.1 g/dL (6.3-8.3)
[2019-06-13 07:47] LABS: POTASSIUM 4.6 mmol/L (3.5-5.1)
[2019-06-13 08:44] LABS: HEMATOCRIT 41.9 % (42.0-52.0); HEMOGLOBIN 14.1 g/dL (14.0-18.0); MCH 32.5 PG (27-31); MCHC 33.7 g/dL (33-37); MCV 96.5 FL (81-99); RBC 4.34 XMIL (4.7-6.1); RDW 15.1 % (11.5-14.5); WBC 55.61 X1000 (4.8-10.8)
[2019-06-14 04:45] LABS: ALLEN TEST YES; BE 5.1 mmoll (-3.0-3.0); BLOOD TYPE ARTERIAL; HCO3-(ACT) 28.7 mmoll (20.0-26.0); METHB 1.4 % (0.0-1.5); PCO2(98.6) 47 mmHg (35-45); PO2(98.6) 60 mmHg (60-100); SAMPLE BLOOD; SAO2 91.9 % (95.0-100.0); SRATE 15 BPM; THB 12.1 g/dL (11.5-17.4); TVOL 560 mL; pH(98.6) 7.42 (7.35-7.45)
[2019-06-14 04:47] LABS: MODALITY VENTILATOR; O2HB 88.2 % (95.0-99.0)
[2019-06-14 05:28] LABS: HEMATOCRIT 37.2 % (42.0-52.0); HEMOGLOBIN 11.7 g/dL (14.0-18.0); MCH 30.5 PG (27-31); MCHC 31.5 g/dL (33-37); MCV 96.9 FL (81-99); MPV 11.2 FL (7.4-10.4); RBC 3.84 XMIL (4.7-6.1); RDW 14.5 % (11.5-14.5); WBC 43.25 X1000 (4.8-10.8)
[2019-06-14 06:36] LABS: AGAP 11; ALBUMIN 2.5 g/dL (3.5-5.0); ALKALINE PHOSPHATASE 127 U/L (32-122); BUN 21 mg/dL (8-22); CALCIUM 8.6 mg/dL (8.8-10.2); CHLORIDE 99 mmol/L (98-107); COSMO 281; CREATININE 0.2 mg/dL (0.7-1.2); ESTIMATED GFR > 60; GLUCOSE 199 mg/dL (70-104); GOT 31 U/L (10-34); GPT 99 U/L (10-44); POTASSIUM 4.2 mmol/L (3.5-5.1); SODIUM 136 mmol/L (136-145); TCO2 26 mmol/L (25-35); TOTAL BILIRUBIN 0.57 mg/dL (0.20-1.00); TOTAL PROTEIN 5.1 g/dL (6.3-8.3)
[2019-06-15 05:11] LABS: ALLEN TEST YES; BE 3.5 mmoll (-3.0-3.0); BLOOD TYPE ARTERIAL; HCO3-(ACT) 27.6 mmoll (20.0-26.0); MODALITY VENTILATOR; O2(CT) 16.8 mL/dL (15.0-23.0); O2HB 94.2 % (95.0-99.0); PCO2(98.6) 50 mmHg (35-45); PO2(98.6) 84 mmHg (60-100); SAMPLE BLOOD; SAO2 97.7 % (95.0-100.0); SRATE 15 BPM; THB 12.6 g/dL (11.5-17.4); TVOL 560 mL; pH(98.6) 7.38 (7.35-7.45)
[2019-06-15 06:50] LABS: AGAP 10; ALB/GLOB RATIO 0.9; ALBUMIN 2.4 g/dL (3.5-5.0); ALKALINE PHOSPHATASE 141 U/L (32-122); BUN 19 mg/dL (8-22); CALCIUM 8.4 mg/dL (8.8-10.2); CHLORIDE 99 mmol/L (98-107); COSMO 278; CREATININE 0.2 mg/dL (0.7-1.2); ESTIMATED GFR > 60; GLUCOSE 167 mg/dL (70-104); GOT 26 U/L (10-34); GPT 109 U/L (10-44); POTASSIUM 4.8 mmol/L (3.5-5.1); SODIUM 136 mmol/L (136-145); TCO2 27 mmol/L (25-35); TOTAL BILIRUBIN 0.43 mg/dL (0.20-1.00)
[2019-06-15 07:14] LABS: HEMATOCRIT 37.4 % (42.0-52.0); HEMOGLOBIN 11.6 g/dL (14.0-18.0); MCH 30.1 PG (27-31); MCV 97.1 FL (81-99); MPV 11.5 FL (7.4-10.4); RBC 3.85 XMIL (4.7-6.1); RDW 14.5 % (11.5-14.5); WBC 39.24 X1000 (4.8-10.8)
[2019-06-15 09:00] LABS: INR 1.01; PROTIME 13.4 Seconds (11.0-16.0)
[2019-06-16 05:05] LABS: ALLEN TEST YES; BE 4.5 mmoll (-3.0-3.0); BLOOD TYPE ARTERIAL; HCO3-(ACT) 28.3 mmoll (20.0-26.0); METHB 1.2 % (0.0-1.5); O2(CT) 20.3 mL/dL (15.0-23.0); O2HB 94.6 % (95.0-99.0); PO2(98.6) 91 mmHg (60-100); SAMPLE BLOOD; SAO2 98.3 % (95.0-100.0); SRATE 15 BPM; THB 15.2 g/dL (11.5-17.4); TVOL 560 mL; pH(98.6) 7.35 (7.35-7.45)
[2019-06-16 05:07] LABS: MODALITY VENTILATOR; PCO2(98.6) 58 mmHg (35-45)
[2019-06-16 06:05] LABS: HEMATOCRIT 34.7 % (42.0-52.0); MCHC 31.7 g/dL (33-37); MCV 97.7 FL (81-99); MPV 11.9 FL (7.4-10.4); RBC 3.55 XMIL (4.7-6.1); RDW 14.4 % (11.5-14.5); WBC 36.14 X1000 (4.8-10.8)
[2019-06-16 06:38] LABS: AGAP 16; ALB/GLOB RATIO 0.8; ALBUMIN 2.1 g/dL (3.5-5.0); ALKALINE PHOSPHATASE 147 U/L (32-122); BUN 17 mg/dL (8-22); CALCIUM 8.6 mg/dL (8.8-10.2); CHLORIDE 92 mmol/L (98-107); COSMO 274; CREATININE 0.1 mg/dL (0.7-1.2); ESTIMATED GFR > 60; GLUCOSE 140 mg/dL (70-104); GOT 24 U/L (10-34); GPT 96 U/L (10-44); POTASSIUM 4.5 mmol/L (3.5-5.1); SODIUM 135 mmol/L (136-145); TCO2 27 mmol/L (25-35); TOTAL BILIRUBIN 0.39 mg/dL (0.20-1.00); TOTAL PROTEIN 4.9 g/dL (6.3-8.3)
[2019-06-17 04:56] LABS: ALLEN TEST YES; BE 8.8 mmoll (-3.0-3.0); BLOOD TYPE ARTERIAL; HCO3-(ACT) 31.8 mmoll (20.0-26.0); METHB 0.5 % (0.0-1.5); O2(CT) 11.7 mL/dL (15.0-23.0); O2HB 96.4 % (95.0-99.0); PO2(98.6) 110 mmHg (60-100); SAMPLE BLOOD; SAO2 99.9 % (95.0-100.0); SRATE 15 BPM; THB 8.5 g/dL (11.5-17.4); TVOL 560 mL; pH(98.6) 7.42 (7.35-7.45)
[2019-06-17 04:58] LABS: MODALITY VENTILATOR; PCO2(98.6) 53 mmHg (35-45)
[2019-06-17 06:49] LABS: AGAP 13; ALB/GLOB RATIO 0.8; ALBUMIN 2.1 g/dL (3.5-5.0); ALKALINE PHOSPHATASE 142 U/L (32-122); BUN 17 mg/dL (8-22); CALCIUM 8.5 mg/dL (8.8-10.2); CHLORIDE 99 mmol/L (98-107); COSMO 280; CREATININE 0.1 mg/dL (0.7-1.2); ESTIMATED GFR > 60; GLUCOSE 140 mg/dL (70-104); GOT 20 U/L (10-34); GPT 80 U/L (10-44); POTASSIUM 4.6 mmol/L (3.5-5.1); SODIUM 138 mmol/L (136-145); TCO2 26 mmol/L (25-35); TOTAL BILIRUBIN 0.32 mg/dL (0.20-1.00); TOTAL PROTEIN 4.8 g/dL (6.3-8.3)
[2019-06-17 09:53] LABS: HEMATOCRIT 34.4 % (42.0-52.0); HEMOGLOBIN 10.8 g/dL (14.0-18.0); MCH 29.9 PG (27-31); MCHC 31.4 g/dL (33-37); MCV 95.3 FL (81-99); MPV 11.4 FL (7.4-10.4); RBC 3.61 XMIL (4.7-6.1); RDW 13.8 % (11.5-14.5); WBC 39.24 X1000 (4.8-10.8)
[2019-06-18 05:56] LABS: ALLEN TEST YES; BE 7.2 mmoll (-3.0-3.0); BLOOD TYPE ARTERIAL; HCO3-(ACT) 30.4 mmoll (20.0-26.0); METHB 1.6 % (0.0-1.5); O2(CT) 13.3 mL/dL (15.0-23.0); PO2(98.6) 61 mmHg (60-100); SAMPLE BLOOD; SAO2 93.3 % (95.0-100.0); SRATE 15 BPM; THB 10.5 g/dL (11.5-17.4); TVOL 560 mL; pH(98.6) 7.41 (7.35-7.45)
[2019-06-18 05:57] LABS: PCO2(98.6) 52 mmHg (35-45)
[2019-06-18 05:58] LABS: MODALITY VENTILATOR; O2HB 89.7 % (95.0-99.0)
[2019-06-18 06:39] LABS: HEMATOCRIT 37.2 % (42.0-52.0); HEMOGLOBIN 11.5 g/dL (14.0-18.0); MCH 30.2 PG (27-31); MCHC 30.9 g/dL (33-37); MCV 97.6 FL (81-99); MPV 11.6 FL (7.4-10.4); RBC 3.81 XMIL (4.7-6.1); RDW 14.6 % (11.5-14.5); WBC 39.06 X1000 (4.8-10.8)
[2019-06-18 07:14] LABS: AGAP 13; ALB/GLOB RATIO 0.8; ALBUMIN 2.3 g/dL (3.5-5.0); ALKALINE PHOSPHATASE 186 U/L (32-122); BUN 15 mg/dL (8-22); CALCIUM 8.6 mg/dL (8.8-10.2); CHLORIDE 98 mmol/L (98-107); COSMO 282; CREATININE < 0.1 mg/dL (0.7-1.2); ESTIMATED GFR > 60; GLUCOSE 155 mg/dL (70-104); GOT 21 U/L (10-34); GPT 79 U/L (10-44); POTASSIUM 4.4 mmol/L (3.5-5.1); SODIUM 139 mmol/L (136-145); TCO2 28 mmol/L (25-35); TOTAL BILIRUBIN 0.35 mg/dL (0.20-1.00); TOTAL PROTEIN 5.2 g/dL (6.3-8.3)
[2019-06-19 05:00] LABS: ALLEN TEST YES; BE 7.4 mmoll (-3.0-3.0); BLOOD TYPE ARTERIAL; HCO3-(ACT) 30.7 mmoll (20.0-26.0); METHB 1.3 % (0.0-1.5); O2(CT) 15.2 mL/dL (15.0-23.0); O2HB 94.9 % (95.0-99.0); PO2(98.6) 94 mmHg (60-100); SAMPLE BLOOD; SAO2 98.4 % (95.0-100.0); SRATE 15 BPM; THB 11.3 g/dL (11.5-17.4); TVOL 560 mL; pH(98.6) 7.33 (7.35-7.45)
[2019-06-19 05:01] LABS: MODALITY VENTILATOR
[2019-06-19 05:02] LABS: PCO2(98.6) 67 mmHg (35-45)
[2019-06-19 06:51] LABS: HEMATOCRIT 33.2 % (42.0-52.0); HEMOGLOBIN 10.2 g/dL (14.0-18.0); MCH 30.2 PG (27-31); MCHC 30.7 g/dL (33-37); MCV 98.2 FL (81-99); MPV 11.3 FL (7.4-10.4); RBC 3.38 XMIL (4.7-6.1); RDW 14.3 % (11.5-14.5); WBC 36.63 X1000 (4.8-10.8)
[2019-06-19 07:13] LABS: AGAP 9; ALB/GLOB RATIO 0.9; ALBUMIN 2.4 g/dL (3.5-5.0); ALKALINE PHOSPHATASE 172 U/L (32-122); BUN 17 mg/dL (8-22); CALCIUM 8.5 mg/dL (8.8-10.2); CHLORIDE 97 mmol/L (98-107); COSMO 277; CREATININE < 0.1 mg/dL (0.7-1.2); ESTIMATED GFR > 60; GLUCOSE 166 mg/dL (70-104); GOT 22 U/L (10-34); GPT 76 U/L (10-44); POTASSIUM 4.5 mmol/L (3.5-5.1); SODIUM 136 mmol/L (136-145); TCO2 30 mmol/L (25-35); TOTAL BILIRUBIN 0.33 mg/dL (0.20-1.00); TOTAL PROTEIN 5.2 g/dL (6.3-8.3)
[2019-06-20 04:34] LABS: ALLEN TEST YES; BE 12.5 mmoll (-3.0-3.0); BLOOD TYPE ARTERIAL; HCO3-(ACT) 34.6 mmoll (20.0-26.0); O2(CT) 14.8 mL/dL (15.0-23.0); O2HB 92.7 % (95.0-99.0); PO2(98.6) 73 mmHg (60-100); SAMPLE BLOOD; SAO2 96.2 % (95.0-100.0); SRATE 15 BPM; THB 11.3 g/dL (11.5-17.4); TVOL 560 mL
[2019-06-20 04:35] LABS: PCO2(98.6) 64 mmHg (35-45)
[2019-06-20 04:36] LABS: MODALITY VENTILATOR
[2019-06-20 05:15] LABS: HEMATOCRIT 29.9 % (42.0-52.0); HEMOGLOBIN 9.2 g/dL (14.0-18.0); MCH 30.3 PG (27-31); MCHC 30.8 g/dL (33-37); MCV 98.4 FL (81-99); MPV 11.2 FL (7.4-10.4); RBC 3.04 XMIL (4.7-6.1); RDW 14.3 % (11.5-14.5); WBC 29.5 X1000 (4.8-10.8)
[2019-06-20 05:34] LABS: AGAP 6; ALBUMIN 2.3 g/dL (3.5-5.0); ALKALINE PHOSPHATASE 164 U/L (32-122); BUN 15 mg/dL (8-22); CALCIUM 8.6 mg/dL (8.8-10.2); CHLORIDE 100 mmol/L (98-107); COSMO 283; CREATININE 0.1 mg/dL (0.7-1.2); ESTIMATED GFR > 60; GLUCOSE 147 mg/dL (70-104); GOT 27 U/L (10-34); GPT 89 U/L (10-44); POTASSIUM 4.3 mmol/L (3.5-5.1); SODIUM 140 mmol/L (136-145); TCO2 34 mmol/L (25-35); TOTAL BILIRUBIN 0.38 mg/dL (0.20-1.00); TOTAL PROTEIN 4.7 g/dL (6.3-8.3)
[2019-06-21 04:49] LABS: ALLEN TEST YES; BE 20.7 mmoll (-3.0-3.0); BLOOD TYPE ARTERIAL; HCO3-(ACT) 41.1 mmoll (20.0-26.0); METHB 1.4 % (0.0-1.5); O2(CT) 6.3 mL/dL (15.0-23.0); O2HB 93.2 % (95.0-99.0); PO2(98.6) 65 mmHg (60-100); SAMPLE BLOOD; SAO2 98.6 % (95.0-100.0); SRATE 15 BPM; THB 4.7 g/dL (11.5-17.4); TVOL 560 mL; pH(98.6) 7.47 (7.35-7.45)
[2019-06-21 04:50] LABS: PCO2(98.6) 63 mmHg (35-45)
[2019-06-21 05:36] LABS: HEMATOCRIT 32.6 % (42.0-52.0); HEMOGLOBIN 10.2 g/dL (14.0-18.0); MCHC 31.3 g/dL (33-37); MCV 99.1 FL (81-99); RBC 3.29 XMIL (4.7-6.1); RDW 14.7 % (11.5-14.5); WBC 30.28 X1000 (4.8-10.8)
[2019-06-21 06:03] LABS: AGAP 8; ALB/GLOB RATIO 0.9; ALBUMIN 2.3 g/dL (3.5-5.0); ALKALINE PHOSPHATASE 208 U/L (32-122); BUN 18 mg/dL (8-22); CALCIUM 8.4 mg/dL (8.8-10.2); CHLORIDE 94 mmol/L (98-107); COSMO 282; CREATININE 0.2 mg/dL (0.7-1.2); ESTIMATED GFR > 60; GLUCOSE 151 mg/dL (70-104); GOT 41 U/L (10-34); GPT 135 U/L (10-44); POTASSIUM 4.5 mmol/L (3.5-5.1); SODIUM 139 mmol/L (136-145); TCO2 37 mmol/L (25-35); TOTAL BILIRUBIN 0.56 mg/dL (0.20-1.00)
[2019-06-21 08:06] LABS: MODALITY VENTILATOR
[2019-06-22 04:47] LABS: ALLEN TEST YES; BE 15.1 mmoll (-3.0-3.0); BLOOD TYPE ARTERIAL; HCO3-(ACT) 36.7 mmoll (20.0-26.0); METHB 0.8 % (0.0-1.5); O2(CT) 16.7 mL/dL (15.0-23.0); O2HB 95.9 % (95.0-99.0); PO2(98.6) 111 mmHg (60-100); SAMPLE BLOOD; SAO2 99.2 % (95.0-100.0); SRATE 15 BPM; THB 12.3 g/dL (11.5-17.4); TVOL 560 mL; pH(98.6) 7.36 (7.35-7.45)
[2019-06-22 04:48] LABS: MODALITY VENTILATOR; PCO2(98.6) 78 mmHg (35-45)
[2019-06-22 05:24] LABS: HEMATOCRIT 28.5 % (42.0-52.0); HEMOGLOBIN 8.7 g/dL (14.0-18.0); MCH 30.1 PG (27-31); MCHC 30.5 g/dL (33-37); MCV 98.6 FL (81-99); MPV 11.3 FL (7.4-10.4); RBC 2.89 XMIL (4.7-6.1); RDW 14.5 % (11.5-14.5); WBC 18.73 X1000 (4.8-10.8)
[2019-06-22 06:06] LABS: AGAP 8; ALB/GLOB RATIO 0.8; ALBUMIN 1.9 g/dL (3.5-5.0); ALKALINE PHOSPHATASE 185 U/L (32-122); BUN 18 mg/dL (8-22); CALCIUM 8.2 mg/dL (8.8-10.2); CHLORIDE 95 mmol/L (98-107); COSMO 282; CREATININE 0.1 mg/dL (0.7-1.2); ESTIMATED GFR > 60; GLUCOSE 152 mg/dL (70-104); GOT 29 U/L (10-34); GPT 112 U/L (10-44); POTASSIUM 4.3 mmol/L (3.5-5.1); SODIUM 139 mmol/L (136-145); TCO2 36 mmol/L (25-35); TOTAL BILIRUBIN 0.35 mg/dL (0.20-1.00); TOTAL PROTEIN 4.4 g/dL (6.3-8.3)
[2019-06-23 04:52] LABS: ALLEN TEST YES; BE 19.8 mmoll (-3.0-3.0); BLOOD TYPE ARTERIAL; HCO3-(ACT) 40.3 mmoll (20.0-26.0); O2(CT) 12.2 mL/dL (15.0-23.0); O2HB 92.1 % (95.0-99.0); PO2(98.6) 68 mmHg (60-100); SAMPLE BLOOD; SAO2 95.5 % (95.0-100.0); SRATE 15 BPM; THB 9.4 g/dL (11.5-17.4); TVOL 550 mL; pH(98.6) 7.45 (7.35-7.45)
[2019-06-23 04:54] LABS: MODALITY VENTILATOR; PCO2(98.6) 67 mmHg (35-45)
[2019-06-23 05:58] LABS: HEMATOCRIT 29.8 % (42.0-52.0); HEMOGLOBIN 9.3 g/dL (14.0-18.0); MCH 30.9 PG (27-31); MCHC 31.2 g/dL (33-37); MPV 11.9 FL (7.4-10.4); RBC 3.01 XMIL (4.7-6.1); RDW 14.8 % (11.5-14.5); WBC 20.17 X1000 (4.8-10.8)
[2019-06-23 06:38] LABS: AGAP 12; ALBUMIN 2.3 g/dL (3.5-5.0); ALKALINE PHOSPHATASE 189 U/L (32-122); BUN 17 mg/dL (8-22); CALCIUM 7.9 mg/dL (8.8-10.2); CHLORIDE 88 mmol/L (98-107); COSMO 276; CREATININE 0.1 mg/dL (0.7-1.2); ESTIMATED GFR > 60; GLUCOSE 138 mg/dL (70-104); GOT 48 U/L (10-34); GPT 105 U/L (10-44); SODIUM 136 mmol/L (136-145); TCO2 36 mmol/L (25-35); TOTAL BILIRUBIN 0.24 mg/dL (0.20-1.00); TOTAL PROTEIN 4.5 g/dL (6.3-8.3)
[2019-06-24 04:38] LABS: ALLEN TEST YES; BE 17.1 mmoll (-3.0-3.0); BLOOD TYPE ARTERIAL; HCO3-(ACT) 38.2 mmoll (20.0-26.0); METHB 1.1 % (0.0-1.5); O2(CT) 11.8 mL/dL (15.0-23.0); O2HB 91.5 % (95.0-99.0); PO2(98.6) 65 mmHg (60-100); SAMPLE BLOOD; SAO2 94.9 % (95.0-100.0); SRATE 15 BPM; THB 9.1 g/dL (11.5-17.4); TVOL 550 mL; pH(98.6) 7.43 (7.35-7.45)
[2019-06-24 04:40] LABS: MODALITY VENTILATOR; PCO2(98.6) 66 mmHg (35-45)
[2019-06-24 05:16] LABS: AGAP 8; ALB/GLOB RATIO 0.7; BUN 18 mg/dL (8-22); CALCIUM 7.8 mg/dL (8.8-10.2); CHLORIDE 94 mmol/L (98-107); COSMO 281; CREATININE 0.1 mg/dL (0.7-1.2); ESTIMATED GFR > 60; GLUCOSE 133 mg/dL (70-104); GOT 70 U/L (10-34); GPT 106 U/L (10-44); POTASSIUM 4.1 mmol/L (3.5-5.1); SODIUM 139 mmol/L (136-145); TCO2 37 mmol/L (25-35); TOTAL BILIRUBIN 0.33 mg/dL (0.20-1.00); TOTAL PROTEIN 4.8 g/dL (6.3-8.3)
[2019-06-24 05:20] LABS: HEMATOCRIT 27.5 % (42.0-52.0); HEMOGLOBIN 8.5 g/dL (14.0-18.0); MCH 30.7 PG (27-31); MCHC 30.9 g/dL (33-37); MCV 99.3 FL (81-99); MPV 11.7 FL (7.4-10.4); RBC 2.77 XMIL (4.7-6.1); WBC 16.23 X1000 (4.8-10.8)
[2019-06-24 05:33] LABS: ALKALINE PHOSPHATASE 207 U/L (32-122)
[2019-06-24 15:02] LABS: URINE SOURCE CATH
[2019-06-24 15:10] LABS: BILIRUBIN URINE NEGATIVE (NEGATIVE); BLOOD URINE MODERATE (NEGATIVE); COLOR YELLOW; GLUCOSE URINE 300 mg/dL (NEGATIVE); KETONE URINE NEGATIVE (NEGATIVE); LEUKOCYTES URINE NEGATIVE (NEGATIVE); NITRITE URINE NEGATIVE (NEGATIVE); PH URINE 6.5; PROTEIN URINE TRACE mg/dL (NEGATIVE); SP GRAVITY URINE 1.013; TURBIDITY URINE CLEAR (CLEAR); UR EPITHELIAL CELLS <10 /HPF (<10); URINE BACTERIA NEGATIVE /HPF; URINE WBC <10 /HPF (<10); UROBILINOGEN URINE NORMAL (NORMAL)
[2019-06-25 04:35] LABS: ALLEN TEST YES; BE 17.8 mmoll (-3.0-3.0); BLOOD TYPE ARTERIAL; HCO3-(ACT) 38.8 mmoll (20.0-26.0); METHB 1.2 % (0.0-1.5); O2(CT) 10.2 mL/dL (15.0-23.0); O2HB 91.8 % (95.0-99.0); PO2(98.6) 67 mmHg (60-100); SAMPLE BLOOD; SAO2 95.2 % (95.0-100.0); SRATE 15 BPM; THB 7.8 g/dL (11.5-17.4); TVOL 550 mL; pH(98.6) 7.45 (7.35-7.45)
[2019-06-25 04:36] LABS: MODALITY VENTILATOR; PCO2(98.6) 63 mmHg (35-45)
[2019-06-25 07:11] LABS: AGAP 11; ALB/GLOB RATIO 1.4; ALBUMIN 2.8 g/dL (3.5-5.0); ALKALINE PHOSPHATASE 209 U/L (32-122); BUN 17 mg/dL (8-22); CHLORIDE 93 mmol/L (98-107); COSMO 277; CREATININE 0.1 mg/dL (0.7-1.2); ESTIMATED GFR > 60; GLUCOSE 131 mg/dL (70-104); GOT 61 U/L (10-34); GPT 97 U/L (10-44); POTASSIUM 4.7 mmol/L (3.5-5.1); SODIUM 137 mmol/L (136-145); TCO2 33 mmol/L (25-35); TOTAL BILIRUBIN 0.37 mg/dL (0.20-1.00); TOTAL PROTEIN 4.8 g/dL (6.3-8.3)
[2019-06-25 07:31] LABS: HEMATOCRIT 24.4 % (42.0-52.0); HEMOGLOBIN 7.2 g/dL (14.0-18.0); MCH 29.8 PG (27-31); MCHC 29.5 g/dL (33-37); MCV 100.8 FL (81-99); MPV 11.7 FL (7.4-10.4); RBC 2.42 XMIL (4.7-6.1); RDW 15.5 % (11.5-14.5); WBC 12.99 X1000 (4.8-10.8)
[2019-06-26 04:42] LABS: ALLEN TEST YES; BE 14.4 mmoll (-3.0-3.0); BLOOD TYPE ARTERIAL; HCO3-(ACT) 35.9 mmoll (20.0-26.0); METHB 0.8 % (0.0-1.5); O2(CT) 14.7 mL/dL (15.0-23.0); PO2(98.6) 55 mmHg (60-100); SAMPLE BLOOD; SAO2 89.3 % (95.0-100.0); SRATE 15 BPM; THB 12.1 g/dL (11.5-17.4); TVOL 560 mL; pH(98.6) 7.38 (7.35-7.45)
[2019-06-26 04:44] LABS: MODALITY VENTILATOR; O2HB 86.1 % (95.0-99.0); PCO2(98.6) 72 mmHg (35-45)
[2019-06-26 05:03] LABS: HEMATOCRIT 23.9 % (42.0-52.0); HEMOGLOBIN 6.9 g/dL (14.0-18.0); MCH 29.6 PG (27-31); MCHC 28.9 g/dL (33-37); MCV 102.6 FL (81-99); MPV 11.5 FL (7.4-10.4); RBC 2.33 XMIL (4.7-6.1); RDW 15.8 % (11.5-14.5); WBC 12.24 X1000 (4.8-10.8)
[2019-06-26 06:30] LABS: AGAP 8; ALB/GLOB RATIO 0.8; ALBUMIN 2.3 g/dL (3.5-5.0); ALKALINE PHOSPHATASE 221 U/L (32-122); BUN 17 mg/dL (8-22); CALCIUM 8.3 mg/dL (8.8-10.2); CHLORIDE 93 mmol/L (98-107); COSMO 276; CREATININE 0.1 mg/dL (0.7-1.2); ESTIMATED GFR > 60; GLUCOSE 135 mg/dL (70-104); GOT 55 U/L (10-34); GPT 110 U/L (10-44); POTASSIUM 4.2 mmol/L (3.5-5.1); SODIUM 136 mmol/L (136-145); TCO2 35 mmol/L (25-35); TOTAL BILIRUBIN 0.28 mg/dL (0.20-1.00); TOTAL PROTEIN 5.1 g/dL (6.3-8.3)
[2019-06-26 11:05] LABS: ALLEN TEST NO; BE 15.9 mmoll (-3.0-3.0); BLOOD TYPE ARTERIAL; HCO3-(ACT) 37.2 mmoll (20.0-26.0); METHB 1.3 % (0.0-1.5); O2(CT) 9.3 mL/dL (15.0-23.0); PO2(98.6) 59 mmHg (60-100); SAMPLE BLOOD; SAO2 92.1 % (95.0-100.0); SRATE 15 BPM; THB 7.4 g/dL (11.5-17.4); TVOL 560 mL; pH(98.6) 7.42 (7.35-7.45)
[2019-06-26 11:08] LABS: MODALITY VENTILATOR
[2019-06-26 11:09] LABS: O2HB 88.8 % (95.0-99.0); PCO2(98.6) 65 mmHg (35-45)
[2019-06-27 04:23] LABS: ALLEN TEST YES; BE 18.8 mmoll (-3.0-3.0); BLOOD TYPE ARTERIAL; HCO3-(ACT) 39.5 mmoll (20.0-26.0); METHB 0.8 % (0.0-1.5); O2(CT) 12.3 mL/dL (15.0-23.0); O2HB 91.8 % (95.0-99.0); PO2(98.6) 70 mmHg (60-100); SAMPLE BLOOD; SAO2 94.8 % (95.0-100.0); SRATE 15 BPM; THB 9.5 g/dL (11.5-17.4); TVOL 560 mL
[2019-06-27 04:25] LABS: MODALITY VENTILATOR; PCO2(98.6) 75 mmHg (35-45)
[2019-06-27 06:44] LABS: HEMATOCRIT 23.1 % (42.0-52.0); HEMOGLOBIN 6.8 g/dL (14.0-18.0); MCH 30.4 PG (27-31); MCHC 29.4 g/dL (33-37); MCV 103.1 FL (81-99); MPV 11.5 FL (7.4-10.4); RBC 2.24 XMIL (4.7-6.1); RDW 15.6 % (11.5-14.5); WBC 11.58 X1000 (4.8-10.8)
[2019-06-27 07:09] LABS: AGAP 2; ALB/GLOB RATIO 0.9; ALBUMIN 2.3 g/dL (3.5-5.0); ALKALINE PHOSPHATASE 220 U/L (32-122); BUN 21 mg/dL (8-22); CALCIUM 8.1 mg/dL (8.8-10.2); CHLORIDE 93 mmol/L (98-107); COSMO 281; CREATININE 0.1 mg/dL (0.7-1.2); ESTIMATED GFR > 60; GLUCOSE 146 mg/dL (70-104); GOT 37 U/L (10-34); GPT 79 U/L (10-44); POTASSIUM 3.9 mmol/L (3.5-5.1); SODIUM 138 mmol/L (136-145); TCO2 43 mmol/L (25-35); TOTAL BILIRUBIN 0.28 mg/dL (0.20-1.00); TOTAL PROTEIN 4.8 g/dL (6.3-8.3)
[2019-06-28 04:50] LABS: ALLEN TEST YES; BE 20.1 mmoll (-3.0-3.0); BLOOD TYPE ARTERIAL; HCO3-(ACT) 40.6 mmoll (20.0-26.0); METHB 0.3 % (0.0-1.5); O2(CT) 11.7 mL/dL (15.0-23.0); O2HB 93.2 % (95.0-99.0); PO2(98.6) 63 mmHg (60-100); SAMPLE BLOOD; SAO2 95.9 % (95.0-100.0); SRATE 15 BPM; THB 8.9 g/dL (11.5-17.4); TVOL 560 mL; pH(98.6) 7.44 (7.35-7.45)
[2019-06-28 04:51] LABS: PCO2(98.6) 69 mmHg (35-45)
[2019-06-28 04:52] LABS: MODALITY VENTILATOR
[2019-06-28 06:53] LABS: HEMATOCRIT 32.4 % (42.0-52.0); HEMOGLOBIN 9.9 g/dL (14.0-18.0); MCH 29.5 PG (27-31); MCHC 30.6 g/dL (33-37); MCV 96.4 FL (81-99); MPV 11.4 FL (7.4-10.4); RBC 3.36 XMIL (4.7-6.1); RDW 17.5 % (11.5-14.5); WBC 10.42 X1000 (4.8-10.8)
[2019-06-28 07:41] LABS: AGAP 10; ALB/GLOB RATIO 0.9; ALBUMIN 2.6 g/dL (3.5-5.0); ALKALINE PHOSPHATASE 247 U/L (32-122); BUN 17 mg/dL (8-22); CALCIUM 8.7 mg/dL (8.8-10.2); CHLORIDE 90 mmol/L (98-107); COSMO 279; CREATININE < 0.1 mg/dL (0.7-1.2); ESTIMATED GFR > 60; GLUCOSE 165 mg/dL (70-104); GOT 39 U/L (10-34); GPT 79 U/L (10-44); POTASSIUM 3.8 mmol/L (3.5-5.1); SODIUM 137 mmol/L (136-145); TCO2 37 mmol/L (25-35); TOTAL BILIRUBIN 0.39 mg/dL (0.20-1.00); TOTAL PROTEIN 5.5 g/dL (6.3-8.3)
[2019-06-29 05:10] LABS: ALLEN TEST YES; BE 26.3 mmoll (-3.0-3.0); BLOOD TYPE ARTERIAL; HCO3-(ACT) 45.2 mmoll (20.0-26.0); METHB 1.1 % (0.0-1.5); O2(CT) 14.5 mL/dL (15.0-23.0); PO2(98.6) 52 mmHg (60-100); SAMPLE BLOOD; SAO2 90.7 % (95.0-100.0); SRATE 15 BPM; THB 11.8 g/dL (11.5-17.4); TVOL 550 mL; pH(98.6) 7.49 (7.35-7.45)
[2019-06-29 05:11] LABS: MODALITY VENTILATOR; O2HB 87.4 % (95.0-99.0); PCO2(98.6) 71 mmHg (35-45)
[2019-06-29 06:53] LABS: HEMATOCRIT 24.6 % (42.0-52.0); HEMOGLOBIN 7.5 g/dL (14.0-18.0); MCHC 30.5 g/dL (33-37); MCV 98.4 FL (81-99); MPV 11.2 FL (7.4-10.4); RBC 2.5 XMIL (4.7-6.1); RDW 16.4 % (11.5-14.5); WBC 9.4 X1000 (4.8-10.8)
[2019-06-29 07:24] LABS: AGAP 8; ALB/GLOB RATIO 0.9; ALBUMIN 2.7 g/dL (3.5-5.0); ALKALINE PHOSPHATASE 279 U/L (32-122); BUN 16 mg/dL (8-22); CALCIUM 8.5 mg/dL (8.8-10.2); CHLORIDE 84 mmol/L (98-107); COSMO 272; CREATININE < 0.1 mg/dL (0.7-1.2); ESTIMATED GFR > 60; GLUCOSE 117 mg/dL (70-104); GOT 43 U/L (10-34); GPT 80 U/L (10-44); POTASSIUM 3.9 mmol/L (3.5-5.1); SODIUM 135 mmol/L (136-145); TCO2 43 mmol/L (25-35); TOTAL BILIRUBIN 0.47 mg/dL (0.20-1.00); TOTAL PROTEIN 5.8 g/dL (6.3-8.3)
[2019-06-30 04:22] LABS: ALLEN TEST YES; BE 17.4 mmoll (-3.0-3.0); BLOOD TYPE ARTERIAL; HCO3-(ACT) 38.4 mmoll (20.0-26.0); O2(CT) 21.7 mL/dL (15.0-23.0); O2HB 95.4 % (95.0-99.0); PO2(98.6) 109 mmHg (60-100); SAMPLE BLOOD; SAO2 98.7 % (95.0-100.0); SRATE 15 BPM; THB 16.1 g/dL (11.5-17.4); TVOL 500 mL; pH(98.6) 7.38 (7.35-7.45)
[2019-06-30 04:30] LABS: MODALITY VENTILATOR; PCO2(98.6) 81 mmHg (35-45)
[2019-06-30 06:49] LABS: HEMATOCRIT 31.7 % (42.0-52.0); HEMOGLOBIN 9.7 g/dL (14.0-18.0); MCH 30.2 PG (27-31); MCHC 30.6 g/dL (33-37); MCV 98.8 FL (81-99); MPV 10.8 FL (7.4-10.4); RBC 3.21 XMIL (4.7-6.1); RDW 16.1 % (11.5-14.5); WBC 8.23 X1000 (4.8-10.8)
[2019-06-30 07:22] LABS: AGAP 9; ALB/GLOB RATIO 0.9; ALBUMIN 2.5 g/dL (3.5-5.0); ALKALINE PHOSPHATASE 285 U/L (32-122); BUN 17 mg/dL (8-22); CALCIUM 8.7 mg/dL (8.8-10.2); CHLORIDE 90 mmol/L (98-107); COSMO 281; CREATININE < 0.1 mg/dL (0.7-1.2); ESTIMATED GFR > 60; GLUCOSE 206 mg/dL (70-104); GOT 26 U/L (10-34); GPT 76 U/L (10-44); POTASSIUM 4.8 mmol/L (3.5-5.1); SODIUM 137 mmol/L (136-145); TCO2 38 mmol/L (25-35); TOTAL BILIRUBIN 0.33 mg/dL (0.20-1.00); TOTAL PROTEIN 5.3 g/dL (6.3-8.3)
[2019-07-01 05:16] LABS: ALLEN TEST YES; BE 16.2 mmoll (-3.0-3.0); BLOOD TYPE ARTERIAL; HCO3-(ACT) 37.4 mmoll (20.0-26.0); METHB 0.7 % (0.0-1.5); O2HB 90.1 % (95.0-99.0); PO2(98.6) 59 mmHg (60-100); SAMPLE BLOOD; SRATE 15 BPM; THB 10.2 g/dL (11.5-17.4); TVOL 500 mL; pH(98.6) 7.44 (7.35-7.45)
[2019-07-01 05:17] LABS: PCO2(98.6) 63 mmHg (35-45)
[2019-07-01 05:18] LABS: MODALITY VENTILATOR
[2019-07-01 05:37] LABS: HEMATOCRIT 34.5 % (42.0-52.0); HEMOGLOBIN 10.4 g/dL (14.0-18.0); MCH 30.2 PG (27-31); MCHC 30.1 g/dL (33-37); MCV 100.3 FL (81-99); MPV 10.4 FL (7.4-10.4); RBC 3.44 XMIL (4.7-6.1); RDW 16.3 % (11.5-14.5); WBC 8.18 X1000 (4.8-10.8)
[2019-07-01 06:14] LABS: AGAP 14; ALB/GLOB RATIO 0.8; ALBUMIN 2.6 g/dL (3.5-5.0); ALKALINE PHOSPHATASE 348 U/L (32-122); BUN 15 mg/dL (8-22); CALCIUM 8.8 mg/dL (8.8-10.2); CHLORIDE 91 mmol/L (98-107); COSMO 277; CREATININE 0.2 mg/dL (0.7-1.2); ESTIMATED GFR > 60; GLUCOSE 140 mg/dL (70-104); GOT 55 U/L (10-34); GPT 92 U/L (10-44); POTASSIUM 4.5 mmol/L (3.5-5.1); SODIUM 137 mmol/L (136-145); TCO2 32 mmol/L (25-35); TOTAL BILIRUBIN 1.01 mg/dL (0.20-1.00); TOTAL PROTEIN 5.7 g/dL (6.3-8.3)
[2019-07-01 14:47] LABS: ANTINEUTROPHIL CYTOPLASMIC AB SEE COMMENTS
[2019-07-02 04:54] LABS: ALLEN TEST YES; BE 8.1 mmoll (-3.0-3.0); BLOOD TYPE ARTERIAL; HCO3-(ACT) 31.2 mmoll (20.0-26.0); METHB 1.1 % (0.0-1.5); O2(CT) 14.6 mL/dL (15.0-23.0); O2HB 95.2 % (95.0-99.0); PO2(98.6) 109 mmHg (60-100); SAMPLE BLOOD; SAO2 99.2 % (95.0-100.0); SRATE 15 BPM; THB 10.8 g/dL (11.5-17.4); TVOL 500 mL; pH(98.6) 7.24 (7.35-7.45)
[2019-07-02 04:56] LABS: PCO2(98.6) 89 mmHg (35-45)
[2019-07-02 04:57] LABS: MODALITY VENTILATOR
[2019-07-02 06:37] LABS: HEMATOCRIT 34.3 % (42.0-52.0); HEMOGLOBIN 10.3 g/dL (14.0-18.0); MCH 31.1 PG (27-31); MCV 103.6 FL (81-99); MPV 11.7 FL (7.4-10.4); RBC 3.31 XMIL (4.7-6.1); RDW 16.2 % (11.5-14.5); WBC 19.8 X1000 (4.8-10.8)
[2019-07-02 07:08] LABS: AGAP 18; ALB/GLOB RATIO 0.6; ALBUMIN 2.2 g/dL (3.5-5.0); ALKALINE PHOSPHATASE 370 U/L (32-122); BUN 23 mg/dL (8-22); CALCIUM 8.8 mg/dL (8.8-10.2); CHLORIDE 91 mmol/L (98-107); COSMO 283; CREATININE 0.4 mg/dL (0.7-1.2); ESTIMATED GFR > 60; GLUCOSE 172 mg/dL (70-104); GOT 31 U/L (10-34); GPT 82 U/L (10-44); POTASSIUM 4.4 mmol/L (3.5-5.1); SODIUM 138 mmol/L (136-145); TCO2 29 mmol/L (25-35); TOTAL BILIRUBIN 2.15 mg/dL (0.20-1.00); TOTAL PROTEIN 5.9 g/dL (6.3-8.3)
[2019-07-02 13:55] LABS: INR 1.4; PROTIME 17.5 Seconds (11.0-16.0)
[2019-07-03 04:49] LABS: ALLEN TEST YES; BE 8.9 mmoll (-3.0-3.0); BLOOD TYPE ARTERIAL; HCO3-(ACT) 31.9 mmoll (20.0-26.0); METHB 0.3 % (0.0-1.5); O2(CT) 12.1 mL/dL (15.0-23.0); O2HB 96.9 % (95.0-99.0); PO2(98.6) 162 mmHg (60-100); SAMPLE BLOOD; SAO2 99.6 % (95.0-100.0); SRATE 30 BPM; THB 8.6 g/dL (11.5-17.4); TVOL 500 mL; pH(98.6) 7.35 (7.35-7.45)
[2019-07-03 04:51] LABS: MODALITY VENTILATOR; PCO2(98.6) 65 mmHg (35-45)
[2019-07-03 09:13] LABS: HEMOGLOBIN 8.7 g/dL (14.0-18.0); MCH 29.4 PG (27-31); MCV 101.4 FL (81-99); MPV 10.4 FL (7.4-10.4); RBC 2.96 XMIL (4.7-6.1); RDW 16.1 % (11.5-14.5); WBC 22.36 X1000 (4.8-10.8)
[2019-07-03 09:32] LABS: AGAP 18; ALB/GLOB RATIO 0.5; ALBUMIN 1.8 g/dL (3.5-5.0); ALKALINE PHOSPHATASE 306 U/L (32-122); BUN 52 mg/dL (8-22); CALCIUM 8.6 mg/dL (8.8-10.2); CHLORIDE 88 mmol/L (98-107); COSMO 291; ESTIMATED GFR > 60; GLUCOSE 224 mg/dL (70-104); GOT 1093 U/L (10-34); GPT 932 U/L (10-44); SODIUM 135 mmol/L (136-145); TCO2 29 mmol/L (25-35); TOTAL BILIRUBIN 2.25 mg/dL (0.20-1.00); TOTAL PROTEIN 5.5 g/dL (6.3-8.3)
[2019-07-03 09:37] LABS: POTASSIUM 6.7 mmol/L (3.5-5.1)
[2019-07-03 12:35] VITALS: BP 80/30
== END 2019-07-03 11:24 | disposition expired | DRG 166 ==
LOC: P.ED 10:05 → P.MEDSURG 12:53 → SUATTDRO 12:53 → 3N 05-02 14:06 → 2N 05-04 08:11 → ICU 05-10 10:48
PROVIDERS: ATTEND Internal Medicine